=== PATIENT | male | born 1980 ===

== ENCOUNTER 2019-12-10 02:23 | Emergency (ER) | payer OTHER, SELFPAY ==
--- NOTE | 2019-12-10 | ECG_ITS ---
Test Reason : CHEST PAIN Blood Pressure : / mmHG Vent. Rate : 058 BPM Atrial Rate : 058 BPM P-R Int : 148 ms QRS Dur : 088 ms QT Int : 412 ms P-R-T Axes : 044 -20 013 degrees QTc Int : 404 ms Sinus bradycardia Left axis deviation Otherwise normal ECG No previous ECGs available Referred By: Gisselle Young Electronically Signed By:ROSA M DE LA FUENTE MD
--- NOTE | 2019-12-10 | XR_ITS ---
EXAMINATION: XR CHEST CLINICAL INFORMATION: Shortness of breath COMPARISON: None TECHNIQUE: Frontal view of the chest was obtained. FINDINGS: The lungs are well expanded. Patchy opacity at the left base. No pleural effusion or pneumothorax. The cardiomediastinal silhouette is within normal limits. No osseous abnormality. XR/XR chest 1V IMPRESSION: Patchy left basilar opacity which could represent atelectasis or pneumonia.
[2019-12-10 02:57] VITALS: BP 151/101; PULSE 67; RESP 18; TEMP 37.3; O2SAT 97; BMI 31.3
--- NOTE | 2019-12-10 04:24 | ED_ITS ---
HPI - URI/Sore Throat General Chief Complaint: Upper Respiratory Symptoms Stated Complaint: Sob Time Seen by Provider: 12/10/19 04:03 History of Present Illness HPI Narrative: Patient is a 31-year-old male presents today with having coughing, congestion, upper respiratory symptoms that ongoing for the last 4 days. Patient complains of subjective fever. Denies any recent travel. Denies any change in smell and taste. Denies any exposure to coronavirus. Patient from home. No history of similar symptoms. Decreased appetite. Decreased p.o. intake Related Data Previous Rx's Medication Instructions Recorded doxycycline hyclate 100 mg PO BID #14 cap 12/10/19 Allergies Allergy/AdvReac Type Severity Reaction Status Date / Time No Known Allergies Allergy Verified 12/10/19 02:57 Review of Systems Review of Systems: Constitutional: No Weight loss, No Fever, No Chills, No Night Sweats, No Fatigue, No Malaise ENT/Mouth: No Hearing loss, No Ear Pain, No Nasal Congestion, No Sinus Pain, No Hoarseness, No sore throat, No Rhinorrhea, No Swallowing Difficulty Eyes: No Eye Pain, No Swelling, No Redness, No Foreign Body, No Discharge, No Vision Changes Cardiovascular: No Chest Pain, No SOB, No Dyspnea on Exertion, No Orthopnea, No Edema, No Palpitations Respiratory: Positive Cough, positive Sputum, No Wheezing, No Smoke Exposure, No Dyspnea Gastrointestinal: No Nausea, No Vomiting, No Diarrhea, No Constipation, No abdominal Pain, No Hematochezia, No Melena Genitourinary: no irregular bleeding, No Dysuria, No Urinary Frequency, No Hematuria, No Urinary Incontinence, No Urgency, No Flank Pain, No Urinary Flow Changes, No Hesitancy Musculoskeletal: No joint pain, No Myalgias, No Joint Swelling Skin: No Skin Lesions, No rash Neuro: No Weakness, No Numbness, No Paresthesias, No Loss of Consciousness, No Dizziness, No Headache Psych: No Anxiety/Panic, No Depression, No SI/HI/AH/VH, No Social Issues, Heme/Lymph: No Bruising, No Bleeding,No Lymphadenopathy Endocrine: No Polyuria, No Polydipsia, No Temperature Intolerance PMFSH Past Medical History Attestation statement: The following information was validated with the patient. Social History Social History Advance Directives: No Advance Directives Information Provided: No Physical Exam Vital Signs: Vital Signs: Vital Signs Temp Pulse Resp BP Pulse Ox 12/10/19 02:57 99.2 F 67 18 151/101 H 97 Body Mass Index 31.3 Appearance: Alert. Oriented X3. No acute distress. Eyes: Pupils equal, round and reactive to light. ENT: Pharynx normal. Neck: Normal inspection. Neck supple. No lymph nodes noted. No crepitus CVS: Normal heart rate and rhythm. Pulses normal. Normal S1 and S2 Respiratory: No respiratory distress. Breath sounds normal. No Wheezing. No rales Abdomen: Soft and nontender. No rigidity. No distention. good BS x4 Skin: Skin warm and dry. Normal skin color. Normal skin turgor. Extremities: No lower extremity edema. Neurovascular intact to all extremities. No Lacerations. No Rash Neuro: Oriented X 3. No motor deficit. No sensory deficit. Moving all extermities. No slurred speech MDM - URI/Sore Throat MDM Narrative Medical decision making narrative: Patient had a low-grade fever. Chest x-ray showed a possible left lower lobe infiltrate. Will start patient on doxycycline an outpatient basis. Encouraged fluid. Close follow-up on outpatient basis. Home quarantine for possible coronavirus. In stable condition. Patient did have an EKG here in the emergency department it appears to be normal will discharge patient ECG Data Attestation: I personally reviewed and interpreted this ECG as follows: ECG interpretation date: 12/10/19 ECG interpretation time: 04:27 Interpretation: Sinus heart rate is 60 p.r. cares QT within normal limits is no ST segment elevation noted Discharge Plan Discharge Clinical Impression: Upper respiratory infection, Pneumonia, COVID-19 Patient Disposition: Home, Self-Care Instructions: Community Acquired Pneumonia (ED), COVID-19 (Coronavirus Disease 2019) (ED) Additional Instructions: Please follow strict home quarantine until all symptom has resolved for at least 2 days. Prescriptions: New doxycycline hyclate 100 mg capsule 100 mg PO BID Qty: 14 RF: 0 Referrals: Mckenna Mcconnell, [employer] [Primary Care Provider] - 2 days
== END 2019-12-10 04:41 | disposition home or self-care (01) ==
PROVIDERS: Emergency Provider Emergency Medicine Emergency Medical Services; PCP Nurse Practitioner Adult Health
DX: U07.1 COVID-19 (principal); J18.9 Pneumonia, unspecified organism; J06.9 Acute upper respiratory infection, unspecified
CPT/HCPCS: 71045; 87635; 93005; 99283

== ENCOUNTER 2020-03-26 10:23 | Outpatient (REF) | payer OTHER, SELFPAY ==
--- NOTE | ~2020-03-26 | XR_ITS ---
EXAMINATION: BILATERAL FEET CLINICAL INFORMATION: Bilateral foot pain. COMPARISON: None TECHNIQUE: 3 views of each foot FINDINGS: 3 views of the left foot do not demonstrate any evidence of acute fracture or dislocation. Joint spaces appear maintained without significant degenerative change. No periarticular or para-articular erosive changes are seen. There is a plantar calcaneal spur present. No significant soft tissue swelling. 3 views of the right foot do not demonstrate any evidence of acute fracture or dislocation. Joint spaces maintained. No significant soft tissue swelling. Prominent plantar calcaneal spur is seen. No erosive changes evident. XR/XR foot LT 2V IMPRESSION: Bilateral plantar calcaneal spurs.
--- NOTE | ~2020-03-26 | XR_ITS ---
EXAMINATION: BILATERAL FEET CLINICAL INFORMATION: Bilateral foot pain. COMPARISON: None TECHNIQUE: 3 views of each foot FINDINGS: 3 views of the left foot do not demonstrate any evidence of acute fracture or dislocation. Joint spaces appear maintained without significant degenerative change. No periarticular or para-articular erosive changes are seen. There is a plantar calcaneal spur present. No significant soft tissue swelling. 3 views of the right foot do not demonstrate any evidence of acute fracture or dislocation. Joint spaces maintained. No significant soft tissue swelling. Prominent plantar calcaneal spur is seen. No erosive changes evident. XR/XR foot RT 2V IMPRESSION: Bilateral plantar calcaneal spurs.
== END 2020-03-26 10:24 | disposition home or self-care (01) ==
LOC: HO.XRAY 10:23
PROVIDERS: PCP Nurse Practitioner Family; Visit Provider Nurse Practitioner Family
DX: M79.671 Pain in right foot (principal); M79.672 Pain in left foot
CPT/HCPCS: 73620

== ENCOUNTER 2020-03-28 09:20 | Outpatient (REF) | payer OTHER, SELFPAY ==
[2020-03-28 09:51] LABS: MANUAL DIFF FLAG NO
[2020-03-28 10:02] LABS: Basophils Absolute Auto 0.1 X10*3/uL (0.0-0.2); Basophils Percent Auto 0.8 % (0-2); Eosinophils Absolute Auto 0.2 X10*3/uL (0.0-0.4); Eosinophils Percent Auto 3.1 % (0-4); Hematocrit 44.5 % (42-52); Hemoglobin 15.6 g/dl (14.0-18.0); Imm Gran Abs Auto 0.02 X10*3/uL (0.00-0.03); Imm Gran Pct Auto 0.3 % (0.0-0.4); Lymphocytes Absolute Auto 2.6 X10*3/uL (1.2-4.9); Mean Corpuscular HGB Conc 35.1 g/dl (31.0-36.0); Mean Corpuscular Volume 91.4 fL (80-98); Mean Platelet Volume 9.8 fL (9.4-12.4); Monocytes Absolute Auto 0.7 X10*3/uL (0.1-1.2); Monocytes Percent Auto 10.9 % (2-11); Neutrophils Absolute Auto 2.9 X10*3/uL (2.0-8.3); Neutrophils Percent Auto 44.9 % (45-73); Platelet Count 238 X10*3/uL (160-400); Red Blood Count 4.87 X10*6/uL (4.60-5.80); Red Cell Distribution Width 11.8 % (11.0-16.0); White Blood Count 6.5 X10*3/uL (4.8-10.8)
[2020-03-28 10:23] LABS: Estimated Average Glucose 105 mg/dL; Hemoglobin A1c % 5.3 %
[2020-03-28 10:32] LABS: Anion Gap 14 (12-20); Blood Urea Nitrogen 13 mg/dL (9-16); Carbon Dioxide 25 mmol/L (22-29); Chloride 104 mmol/L (96-108); Cholesterol 256 mg/dL; Estimated Glomerular Filt Rate > 60; Glucose Fasting 97 mg/dL (60-99); HDL Cholesterol 65 mg/dL; LDL Cholesterol Calculated 163 mg/dl; Potassium 4.5 mmol/L (3.3-5.1); Sodium 138 mmol/L (135-145); Triglycerides 142 mg/dL
== END 2020-03-28 09:21 | disposition home or self-care (01) ==
LOC: HO.LAB 09:20
PROVIDERS: PCP Nurse Practitioner Family; Visit Provider Nurse Practitioner Family
DX: J18.9 Pneumonia, unspecified organism (principal); E78.00 Pure hypercholesterolemia, unspecified
CPT/HCPCS: 36415; 80048; 80061; 83036; 85025

== ENCOUNTER 2024-03-29 13:38 | Outpatient (AMB) | payer OTHER, SELFPAY ==
--- OUTSIDE RECORDS SUMMARY | 2024-03-29 13:44 | XMS_ITS | Data Portability ---
Author Organization [facility], [address] Address [address] [place] [address] Care Team Providers Care Urology Teacher Name Role Phone SKYLER KELLEY Primary Care Provider Assessment No assessment recorded. Plan of Treatment Reminders Order Date Submit Date Provider Last Modified By Organization Details Last Modified Time Details Appointments None recorded. Lab rapid strep group A, throat 2022 [address]23 [place] [id number], [address] [place] [address], [phone], 3 09:47:02 rapid flu (A+B) 2022 [address] [place] [address], [address] [place] [address], [phone], 3 09:47:02 streptococc us group A, culture, throat 2022 023 [place] [facility], [address] [place] [address], [place], [address], 3 08:07:41 Referral None recorded. Procedures None recorded. Surgeries None recorded. Imaging None recorded. Medication Orders amoxicillin 875 mg tablet 2022 [address] [place] [address] [id number], [address] [facility] [place], [address], 3 09:48:00 Patient TargetsNo targets recorded. Patient Instructions Encounter Date Encounter Id Patient Instructions Last Modified By Organization Details Last Modified Time 02/23/2022 [id number] sore throat: car e instructions Not available 02/23/2022 09:47:02 Use over the counter medications for your sore throat. Basic lozenges (cough drops) or lozenges with an anesthetic (numbing agent) can be used as needed for quick results; look for the active ingredient, benzocaine, for numbing lozenges (like Cepacol Extra or Chloraseptic Max). Gargling with warm salt water can also relieve pain. Dissolve 1/4 to 1/2 teaspoon in 8-ounces of warm water; gargle and spit salt solution every hour, as needed. Sore throat pain can also be reduced by taking regular doses of acetaminophen (tylenol) or ibuprofen (Advil); if you are given a prescription of PREDNISONE, you may continue to take acetaminophen, but do not take ibuprofen or naprosyn. While this isn't quick, it can significantly reduce pain within an hour after taking. Please consult our office promptly if you develop any of the following symptoms: 1. A fever of at least 101??F or 38.4??C 2. Throat pain that is severe or does not start to improve within 5 to 7 days Call for an ambulance or go to the emergency room if you: 1. Have trouble breathing 2. Cannot control your saliva (drooling) due to difficulty swallowing 3. Have swelling of the neck or tongue 4. Cannot move your neck or have trouble opening your mouth Not available 02/23/2022 09:47:12 Reason for Referral None Reported. Results Created Date Observation Date Name Description Value Unit Range Abnormal Flag Note LastModifiedBy Organization Detail LastModifiedTime 02/23/19 23 02/26/2022 BETA STREP GP A CULTU RE beta strep gp A culture NEGATI VE Refer ence Range : Negat kady Not Available [facility] ([facility]) [address] [facility], [place], [address], 02/26/2022 14:06:17 02/23/19 23 02/23/2022 rapid flu (A+B) Unknown Analyte Normal = Negati ve Not Available [address] [facility], [place], [address], 02/23/2022 09:08:33 02/23/19 23 02/23/2022 rapid flu (A+B) Unknown Analyte Normal = Negati ve Not Available [address] [place] [address], [place], [phone], 02/23/2022 09:08:33 02/23/19 23 02/23/2022 rapid flu (A+B) Unknown Analyte negati ve Not Available [address] [place] [address], [place], [phone], 02/23/2022 09:08:33 02/23/19 23 02/23/2022 rapid flu (A+B) Unknown Analyte negati ve Not Available [address] [place] [address], [place], [phone], 02/23/2022 09:08:33 02/23/19 23 02/23/2022 rapid strep group A, throa t Unknown Analyte Normal = Negati ve Not Available [address] [place] [address], [place], [phone], 02/23/2022 09:05:57 02/23/19 23 02/23/2022 rapid strep group A, throa t Unknown Analyte negati ve Not Available [address] [place] [address], [place], [phone], 02/23/2022 09:05:57 Result Notes None recorded. Problems Name Problem SNOMED Code Status Onset Date Resolution Date Notes Provider Name and Address Organization Details Recorded Time Hyperlipidemia 74692291 Active 2022 [facility] 09:12:37 Problem Notes None recorded. Procedures Surgical History Date Name Laterality Status Provider Name and Address Organization Details Recorded Time open reduction of fracture with internal fixation completed Charity VELAZQUEZ - [facility] 02/23/2022 09:08:39 Imaging Results None recorded. Procedure Notes None recorded. Medical Equipment None Reported. Allergies No known drug allergies Medications Name Sig Start Date Stop Date Status Note LastModified by Organization Details LastModified Time valsartan 80 mg tablet TAKE 1 TABLET BY MOUTH EVERY DAY active Not Available Not Available No t Available amoxicillin 875 mg tablet Take 1 tablet every 12 hours by oral route. 2022 active Not Available Not Available Not Avai lable amoxicillin 875 mg-potassiu m clavulanate 125 mg tablet TAKE 1 TABLET BY MOUTH 2 TIMES PER DAY FOR 10 DAYS WITH FOOD 02/23 completed Not Available Not Available Not Available atorvastati n active Not Available Not Available Not Available ID NOW COVID-19 Test Kit TEST DIRECTED TODAY 02/23 completed Not Available Not Available Not Available Vitals Date Recorded Body height Body mass index (BMI) Body weight Respiratory rate Body temperature Heart rate Oxygen saturation Oxygen saturation in Arterial blood by Pulse oximetry Systolic blood pressure Diastolic blood pressure Provider Name and Address Organization Details Last Updated DateTime 3 170.18 cm 34.5 kg/m2 27258.3 2 g 18 /min 98.1 [degF] 66 /min 100 % 100 % 156 mm[Hg] 102 mm[Hg] Charity VELAZQUEZ - [facility] 09:12:31 Social History Question Answer Notes LastModified by Organizat ion Details LastModified Time Tobacco Smoking Status Never Smoker Charity saldivar [place] - [facility] 02/23/2022 09:08:25 What Is Your Level Of Alcohol Consumption? Occasional Information not available 02/23/2022 Have You Had Direct Contact, Or Contact During Intimacy, With Monkeypox Rash, Scabs, Or Body Fluids From A Person With Monkeypox? No Information not available 02/23/2022 Do You Use Any Illicit Or Recreational Drugs? No Information not available 02/23/2022 Have You Recently Traveled Abroad? No Information not available 02/23/2022 Do You Or Have You Ever Used Any Other Forms Of Tobacco Or Nicotine? No Information not available 02/23/2022 Sex: Unknown Functional Status None recorded. Mental Status None recorded. Family History Relationship Description Onset Age of this Age Resolved Age Notes LastModified by Organization Details LastModified Time Father No current problems or disability Not available 02/23 09:08:18 Mother No current problems or disability Not available 02/23 09:08:18 Medical History No medical history recorded. Immunizations Vaccine Type Date Status Note Provider Nam e and Address Organization Details Recorded Time COVID-19, mRNA, LNP-S, PF, 30 mcg/0.3 mL dose 06/30/2020 completed Charitylowell Longoria null, PA - [facility] 02/23/2022 09:07:15 COVID-19, mRNA, LNP-S, PF, 30 mcg/0.3 mL dose 06/09/2020 completed Charity [place] null, PA - [facility] 02/23/2022 09:07:15 Past Encounters Encounter ID Performer Location Encounter Start Date Encounter Closed Date Diagnosis/Indication Diagnosis SNOMED-CT Code Diagnosis ICD10 Code Diagnosis Note [id number] [address] [place] [address] 04/22/2021 09:04:16 04/22/2021 10:16:48 [id number] [address] [place] [address] 04/18/2018 17:38:29 04/18/2018 18:05:20 [id number] [address] [place] [address] 05/16/2017 08:27:46 05/16/2017 08:48:36 [id number] Jacqueline Santamaria MD [address] [place] [address] 02/23/2022 08:24:30 02/23/2022 10:04:03 Upper respiratory infection 61922189 J06.9 Acute pharyngitis 914094 003 J02.9 Health Concerns Section Related Observation LastModified by Organization Detai ls LastModified Time None Recorded Concern Status LastModified by Organization Details LastModified Time None Recorded Advance Directives Directive None Recorded Payers Encounter Date Sequence Insurance Name Policy Number Policy Kwok Covered Member ID Kwok Member ID Guarantor Name 05/16/2017 1 [facility] [employer] (O) [id number] Krissy Shirley [id number] 1 Que Shirley 04/22/2021 1 [facility] [employer] (HMO) [id number] Krissy Shirley [id number] 1 Que Shirley 02/23/2022 1 [facility] [employer] (O) [id number] Krissy Shirley [id number] 1 Que hSirley Notes Date Note Type Note Provider Name and Address Organization Details Recorded Time 02/23/2022 text/html Sore throatRepor kelly [facility] Severity:moderate Quality:hurts to swallow Onset/Timin days Associated Symptoms:no shortness of breath; no wheezing; no vomiting; no nausea;yellow sputum;sinus pain/ congestion Context:no sick contacts Jacqueline Santamaria MD [address] [place], [place] [address], [address], [place] - [facility] 02/23/2022 09:48:50
--- NOTE | 2024-03-29 14:11 | A.OFFPC_ITS ---
Vital Signs 03/29/24 14:12 Height 5 ft 7 in Weight 241 lb BMI 37.7 BP 130/76 Blood Pressure Location Lt brachial Position Sitting Respiration 18 Pulse 76 Pulse Source Pulse Oximeter Temp 98.6 F Temp Source Oral Pulse Oximetry (%) 97 Oxygen Delivery Method Room Air Intake Visit Reasons: PE overdue/coughing/throat concerns when eating Intake Note: Pt is ere today for PE. Allergies No Known Allergies Allergy (Verified 03/29/24 14:12) Medication List - Last Reconciled 03/29/24 by Leigh Gomes MD No Known Home Meds Tobacco use date assessed: 03/29/24 Dental Screening Dental Screen Date: 03/29/24 Did you have a dental visit in the last 12 months?: Yes Did you have a dental problem in the last 6 months where you did not have access to dental care?: No Was dental information given to patient?: Patient has dentist HPI PE overdue/coughing/throat concerns when eating HPI Details Pt presents for PE. [facility] Medical History Plantar fasciitis Pain of both heels High cholesterol Surgical History History of hernia surgery No pertinent past surgical history Family History Family/Other Medical history unknown Father Hypertension Diabetes Mother No problems noted. Social History (Updated 03/29/24 @ 15:12 by Leigh Gomes MD) Household Members Other:: , 3 children, works at [employer] Housing: House Alcohol intake: current Patient Tobacco Use Status: Never used Tobacco e-Cigarette/Vaping Use: Never Used service: No Current occupational status: employed Cognitive needs: No Hearing needs: No Vision needs: Yes Questionnaire PHQ-9 Over the last 2 weeks, how often have you been bothered by any of the following problems? 1. Little interest or pleasure in doing things: several days 2. Feeling down, depressed, or hopeless: not at all 3. Trouble falling or staying asleep, or sleeping too much: several days 4. Feeling tired or having little energy: several days 5. Poor appetite or overeating: not at all 6. Feeling bad about yourself - or that you are a failure or have let yourself or your family down: not at all 7. Trouble concentrating on things, such as reading the newspaper or watching television: not at all 8. Moving or speaking so slowly that other people could have noticed. Or the opposite - being so fidgety or restless that you have been moving around a lot more than usual: not at all 9. Thoughts that you would be better off or of hurting yourself in some way: not at all Total score: 3 Depression Screening Interpretation: Negative Depression Screening Done: Yes 22935 - PHQ-9 Billing: Yes Source: Developed by Drs. Rosalino Gramajo, Kari Jones, Yung Paredes and colleagues, with an educational pham from [employer]. Thrive Questionnaire Date Thrive assessed: 03/29/24 I am a: Patient What is your living situation today?: I have a steady place to live Within the past 12 months, did the food you bought not last and you didn't have the money to get more?: Never true Within the past 12 months, did you worry whether your food would run out before you got money to buy more?: Never true Do you have trouble paying for medicines?: No Do you have trouble getting transportation to medical appointments?: Yes Do you have trouble paying your heating and electricity bill?: No Do you have trouble taking care of your child, family member or friend?: No Do you have trouble with day-to-day activities such as bathing, preparing meals, shopping, managing finances, etc.?: No Are you currently unemployed and looking for a job?: No Are you interested in more education?: No Please select the resources that you would like help with: None Currently or been in a relationship where the following occur: No concerns reported THRIVE Score: 1 AUDIT C Alcohol Use Questionnaire (AUDIT-C) 1. How often do you have a drink containing alcohol?: 2-3 times a week 2. How many drinks containing alcohol do you have on a typical day when you are drinking?: 3 or 4 3. How often do you have six or more drinks on one occasion?: Weekly Total Score: 7 JOMAR-7 AMB Questionnaire JOMAR-7 Date JOMAR - 7 assessed: 03/29/24 Feeling nervous, anxious, or on edge: 0 = Not at all Not being able to stop or control worryin = Not at all Worrying too much about different things: 0 = Not at all Trouble relaxin = Not at all Being so restless that it is hard to sit still: 0 = Not at all Becoming easily annoyed or irritable: 0 = Not at all Feeling afraid as if something awful might happen: 0 = Not at all Total JOMAR-7 score (0-4 normal; 5-9 mild; 10-14 moderate; 15-21 severe): 0 Source: Developed by Drs. Rosalino Gramajo, Kari Jones, Yung Paredes and colleagues, with an educational pham from [employer]. JOMAR-7 Assessment Billing JOMAR-7 Assessment Tool: JOMAR-7 Assessment 10661 Review of Systems Const All systems reviewed & are unremarkable except as noted in HPI and below Reports no additional complaints Eyes Reports no additional complaints ENT Reports no additional complaints Card Reports no additional complaints Resp Reports no additional complaints GI Reports no additional complaints Reports no additional complaints Physical exam (Primary Care) Vital Signs: Last Vital Signs Temp 98.6 F 03/29/24 14:12 Pulse 76 03/29/24 14:12 Resp 18 03/29/24 14:12 BP 130/76 03/29/24 14:12 Pulse Ox 97 03/29/24 14:12 Oxygen Delivery Method Room Air 03/29/24 14:12 BMI result Body Mass Index 37.7 Tobacco/Smoking Status: Tobacco use Status Tobacco use date assessed 03/29/24 03/29/24 14:18 Patient Tobacco Use Status Never used Tobacco 03/29/24 14:18 e-Cigarette/Vaping Use Never Used 03/29/24 14:18 PHQ-9: PHQ-9 Score PHQ-9: Total score 3 03/29/24 14:20 Depression Screening Interpretation: Negative Thrive Assessment: Date of Thrive Assessment Date Thrive assessed 03/29/24 03/29/24 14:20 Currently or been in a relationship where the following occur: No concerns reported Const General: no acute distress HENMT Head: Yes normal to inspection Face and sinus: Yes normal facial exam Mouth: Normal oral and palatal mucosa present Throat: Yes posterior oropharynx normal Eyes General: appearance normal, both eyes and all related structures Neck Neck: Yes no lymphadenopathy and Yes supple Resp Effort & Inspection: normal respiratory effort Auscultation: clear to auscultation bilaterally Cardio Rhythm: regular rhythm Heart sounds: S1 normal heart sound present and S2 normal heart sound present GI Inspection: Yes normal to inspection Palpation (GI): Soft to palpation Percussion: Yes normal to percussion Auscultation: normal bowel sounds Coding Level of Care Code Est Pt Prev Care 40-64y(98958) Diagnoses Sleep apnea G47.30 High cholesterol E78.00 Annual physical exam Z00.00 Additional Codes JOMAR-7 Assessment Billing - JOMAR-7 Assessment Tool: JOMAR-7 Assessment 33692 ([id number]) PHQ-9 - 42860 - PHQ-9 Billing: Yes ([id number]) Assessment & Plan Assessment & Plan (1) Sleep apnea: Comment: witnessed sleep apnea Code(s): G47.30 - Sleep apnea, unspecified Category: Medical Plan: schedule sleep study (2) High cholesterol: Code(s): E78.00 - Pure hypercholesterolemia, unspecified Category: Medical Plan: low cholesterol diet, regular exercise (3) Annual physical exam: Code(s): Z00.00 - Encounter for general adult medical examination without abnormal fin dings Category: Medical Plan: well balanced and low cholesterol diet, increase exercise, weight loss di scussed, return for fasting labs Orders: Orders RT home sleep study Today G47.30 - Sleep apnea, unspecified Lipid Panel Today E78.00 - Pure hypercholesterolemia, unspecified, Z00.00 - Encounter for general adult medical examination without abnormal findings Comprehensive Aubrey. Panel Fast Today E78.00 - Pure hypercholesterolemia, unspecified, Z00.00 - Encounter for general adult medical examination without abnormal findings Complete Blood Count Auto Diff Today E78.00 - Pure hypercholesterolemia, unspecified, Z00.00 - Encounter for general adult medical examination without abnormal findings UA w Microscopic Today E78.00 - Pure hypercholesterolemia, unspecified, Z00.00 - Encounter for general adult medical examination without abnormal findings
[2024-03-29 14:12] VITALS: BP 130/76; PULSE 76; RESP 18; TEMP 37; O2SAT 97; BMI 37.7
== END 2024-03-29 14:49 | disposition home or self-care (01) ==
PROVIDERS: PCP Internal Medicine; Visit Provider Internal Medicine
DX: G47.30 Sleep apnea, unspecified (principal); E78.00 Pure hypercholesterolemia, unspecified; Z00.00 Encounter for general adult medical examination without abnormal findings

== ENCOUNTER → 2024-03-29 13:38 | Outpatient (BNVA) | payer OTHER, SELFPAY | PROVIDERS: PCP Internal Medicine; Visit Provider Internal Medicine | DX: Z00.00 Encounter for general adult medical examination without abnormal findings (principal); G47.30 Sleep apnea, unspecified; E78.00 Pure hypercholesterolemia, unspecified | CPT/HCPCS: 96127; 99396 ==

== ENCOUNTER → 2024-05-29 13:22 | Outpatient (REF) | payer OTHER, SELFPAY ==
--- OUTSIDE RECORDS SUMMARY | 2024-05-29 15:54 | XMS_ITS | Data Portability ---
Author Organization [facility], [address] Address [address] [place] [address] Care Team Providers Care Lpn Cma Name Role Phone SKYLER KELLEY Primary Care Provider Assessment No assessment recorded. Plan of Treatment Reminders Order Date Submit Date Provider Last Modified By Organization Details Last Modified Time Details Appointments None recorded. Lab rapid strep group A, throat 2022 023 [place] [address], [address] [place] [address], [phone], 3 09:47:02 rapid flu (A+B) 2022 023 [place] [address], [address] [place] [address], [phone], 3 09:47:02 streptococc us group A, culture, throat 2022 023 [place] [facility], [address] [place] [address], [place], [address], 3 08:07:41 Referral None recorded. Procedures None recorded. Surgeries None recorded. Imaging None recorded. Medication Orders amoxicillin 875 mg tablet 2022 023 [place] [address] [id number], [address] [facility] [place], [address], 3 09:48:00 Patient TargetsNo targets recorded. Patient Instructions Encounter Date Encounter Id Patient Instructions Last Modified By Organization Details Last Modified Time 02/23/2022 [id number] sore throat: car e instructions Not available [...] symptoms: 1. A fever of at least 101? ? ?F or 38.4? ? ?C 2. Throat pain that is severe or [...] Range : Negat kady Not Available [facility] ([facility]) [address] [facility], [place], [address], 02/26/2022 14:06:17 02/23/19 23 02/23/2022 rapid flu (A+B) Unknown Analyte Normal = Negati ve Not Available [address] [facility], [place], [address], 02/23/2022 09:08:33 02/23/19 23 02/23/2022 rapid flu (A+B) Unknown Analyte Normal = Negati ve Not Available [address] [place], [place] [address], [address], 02/23/2022 09:08:33 02/23/19 23 02/23/2022 rapid flu (A+B) Unknown Analyte negati ve Not Available [address] [place], [place] [address], [address], 02/23/2022 09:08:33 02/23/19 23 02/23/2022 rapid flu (A+B) Unknown Analyte negati ve Not Available [address] [place] [address] [place], [address], 02/23/2022 09:08:33 02/23/19 23 02/23/2022 rapid strep group A, throa t Unknown Analyte Normal = Negati ve Not Available [address] [place] [address], [place], [phone], 02/23/2022 09:05:57 02/23/19 23 02/23/2022 rapid strep group A, throa t Unknown Analyte negati ve Not Available [address] [place] [address], [place], [phone], 02/23/2022 09:05:57 Result Notes None recorded. Problems Name Problem SNOMED Code Status Onset Date Resolution Date Notes Provider Name and Address Organization Details Recorded Time Hyperlipidemia [id number] Active 2022 [facility] 09:12:37 Problem Notes None recorded. Procedures Surgical History Date Name Laterality Status Provider Name and Address Organization Details Recorded Time open reduction of fracture with internal fixation completed Charity Rivera [facility] 02/23/2022 09:08:39 Imaging Results None [...] Updated DateTime 3 170.18 cm 34.5 kg/m2 73892.3 2 g 18 /min 98.1 [degF] 66 /min 100 % 100 % 156 mm[Hg] 102 mm[Hg] Charity VELAZQUEZ [facility] 09:12:31 Social History Question Answer Notes LastModified by Organizat ion Details LastModified Time Tobacco Smoking Status Never Smoker Charity saldivar PA - [facility] 02/23/2022 09:08:25 What Is Your Level Of [...] PF, 30 mcg/0.3 mL dose 06/30/2020 completed Charity Swati null, PA - [facility] 02/23/2022 09:07:15 COVID-19, mRNA, LNP-S, PF, 30 mcg/0.3 mL dose 06/09/2020 completed Charity Perley null, PA - [facility] 02/23/2022 09:07:15 Past Encounters Encounter ID Performer Location Encounter Start Date Encounter Closed Date Diagnosis/Indication Diagnosis SNOMED-CT Code Diagnosis ICD10 Code Diagnosis Note [id number] [address] [address] [place] [address] 04/22/2021 09:04:16 04/22/2021 10:16:48 [id number] [address] [facility] [place] [address] 04/18/2018 17:38:29 04/18/2018 18:05:20 [id number] [address] [facility] [place] [address] 05/16/2017 08:27:46 05/16/2017 08:48:36 [id number] Jacqueline Santamaria MD [address] [place] [address] 02/23/2022 08:24:30 02/23/2022 10:04:03 Upper respiratory infection 66105664 J06.9 Acute pharyngitis 297935 003 J02.9 Health Concerns Section Related Observation LastModified by Organization Detai ls LastModified Time None Recorded Concern Status LastModified by Organization Details LastModified Time None Recorded Advance Directives Directive None Recorded Payers Encounter Date Sequence Insurance Name Policy Number Policy Kwok Covered Member ID Kwok Member ID Guarantor Name 05/16/2017 1 [facility] (O) [id number] Krissy Shirley [id number] 1 Que Shirley 04/22/2021 1 [facility] (HMO) [id number] Krissy Shirley [id number] 1 Que Shirley 02/23/2022 1 [facility] (O) [id number] Krissy Shirley [id number] 1 Que Shirley Notes Date Note Type Note Provider Name and Address Organization Details Recorded Time 02/23/2022 text/html Sore throatRepor kelly bypatient.Location: hroat Severity:moderate Quality:hurts to swallow Onset/Timin days Associated Symptoms:no shortness of breath; no wheezing; no vomiting; no nausea;yellow sputum;sinus pain/ congestion Context:no sick contacts Jacqueline Santamaria MD [address] [place], [place] [address], [address], PA - [facility] 02/23/2022 09:48:50
== END ==
LOC: HO.SL 13:22
PROVIDERS: PCP Internal Medicine; Visit Provider Internal Medicine
DX: G47.30 Sleep apnea, unspecified (principal); R06.83 Snoring
CPT/HCPCS: 95806

== ENCOUNTER → 2024-05-29 13:41 | Outpatient (BNV) | payer OTHER, SELFPAY | PROVIDERS: PCP Internal Medicine; Visit Provider Internal Medicine | DX: R06.83 Snoring (principal); G47.10 Hypersomnia, unspecified | CPT/HCPCS: 95806 ==

== ENCOUNTER → 2024-09-22 15:56 | Outpatient (BNV) | payer OTHER, SELFPAY | PROVIDERS: PCP Internal Medicine; Visit Provider Radiology Diagnostic Radiology | DX: M25.562 Pain in left knee (principal) | CPT/HCPCS: 73564 ==

== ENCOUNTER 2024-09-22 16:12 | Emergency (ER) | payer OTHER, SELFPAY ==
--- NOTE | ~2024-09-22 | XR_ITS ---
CLINICAL HISTORY: injury pain Exam: AP, lateral, and oblique views of the left knee. Comparison: None provided. Findings: Bony alignment is anatomic. No fracture or joint effusion. Joint spaces are well preserved. No erosions. Impression: No acute findings. This document has been electronically signed by: Uche Unger MD on 09/22/2024 17:43:05
[2024-09-22 16:38] VITALS: BP 147/70; PULSE 96; RESP 16; TEMP 36.4; O2SAT 95; BMI 36.8
--- NOTE | 2024-09-22 16:54 | ED_ITS ---
HPI - General Adult General Chief complaint: Extremity Injury, Lower Stated complaint: Left knee inju Time Seen by Provider: 09/22/24 18:44 Source: patient Mode of arrival: ambulatory Limitations: no limitations History of Present Illness ED Provider: Juliana Streeter PA-C HPI narrative: Patient is a 44 year old assigned male at with a history of HTN presenting to the emergency department today with left knee pain. Patient states that 1 week ago he was mowing his lawn and felt / heard his left knee pop and has had pain ever since. Patient denies any other complaints at this time. Onset (ago): week(s) (1) Relieving factors: none Exacerbating factors: none Associated symptoms: denies other symptoms Treatments prior to arrival: none Related Data Previous Rx's ?Medication ?Instructions ?Recorded azithromycin 250 mg tablet See Rx Instructions PO .COM PLEX #6 04/04/24 tabs prednisone 20 mg tablet 20 mg PO DAILY 7 days #7 tab s 09/22/24 Allergies Allergy/AdvReac Type Severity Reaction Status Date / Time No Known Allergies Allergy Verified 09/22/24 16:41 Review of Systems Constitutional: Constitutional: Reports as per HPI Eyes: Eyes: Reports as per HPI ENT: Reports as per HPI Cardiovascular: Cardiovascular: Reports as per HPI Respiratory: Respiratory: Reports as per HPI Gastrointestinal: Gastrointestinal: Reports as per HPI Genitourinary: Genitourinary: Reports as per HPI Musculoskeletal: Comments: left knee pain Integumentary/Breasts: Skin/Breast: Reports as per HPI Neurologic: Reports as per HPI Psychiatric: Psychiatric: Reports as per HPI Endocrine: Endocrine: Reports as per HPI Hematologic/Lymphatic: Hematologic/Lymphatic: Reports as per HPI Allergic/Immunologic: Allergic/Immunologic: Reports as per HPI PMF Past Medical History Attestation statement: The following information was validated with the patient. Source: old records reviewed and nursing notes reviewed Medical History Plantar fasciitis Pain of both heels High cholesterol Surgical History History of hernia surgery No pertinent past surgical history Family History Family History Family/Other Medical history unknown Father Hypertension Diabetes Mother No problems noted. Social History Social History Household Members Other:: , 3 children, works at [employer] Housing: House Alcohol intake: current Patient Tobacco Use Status: Never used Tobacco e-Cigarette/Vaping Use: Never Used Advance Directives: No Advance Directives Information Provided: No Do you have a plan to hurt others: No Plan service: No Current occupational status: employed Cognitive needs: No Hearing needs: No Vision needs: Yes Physical Exam ED Vital Signs: Vital Signs - 24 hr 09/22/24 16:38 09/22/24 19:02 Temperature 97.6 F 97.6 F Pulse Rate 96 96 Respiratory Rate 16 16 Blood Pressure 147/70 H 147/70 H Pulse Oximetry 95 95 Oxygen Delivery Method Room Air Room Air BMI result Body Mass Index 36.8 Const General: cooperative, no acute distress, alert and awake Nutritional Appearance: well nourished Orientation/consciousness: patient oriented x3 HENMT Head: Yes normal to inspection and Yes atraumatic Ears: hearing grossly normal bilaterally and external ears normal General nose exam: Normal external nose present, no nasal discharge noted and no epistaxis Face and sinus: Yes normal facial exam, No abrasion and No laceration Mouth: Normal oral and palatal mucosa present, no drooling and no muffled voice Eyes General: appearance normal, both eyes and all related structures Periorbital: periorbital findings normal Eyelids: Yes eyelids normal Conjunctivae: conjunctivae normal Pupils: Equal, round and reactive pupils present EOM: EOMs intact bilaterally Neck Neck: Yes normal visual inspection and Yes full ROM Resp Effort & Inspection: normal respiratory effort and able to speak in complete sentences Neuro General: patient oriented x3, moves all extremities and CN's II-XI intact bilaterally Cranial nerves: Yes Equal, round and reactive pupils present Cognition (Neuro): normal cognition Extrem General: Yes normal to inspection, Yes full ROM and Yes capillary refill normal Psych Appearance: grossly normal Mental Status: mental status grossly normal Affect: normal affect Attitude: cooperative Thought process: Normal thought process present Thought content: Normal thought content present Insight: Good insight present (Psych) Course Course Course Narrative: Rapid medical examination performed in triage by Juliana Streeter PA-C. Patient is a 44 year old assigned male at presenting to the emergency department with left knee pain. Detailed physical exam and review of systems are deferred to the karate teacher. Imaging ordered. Patient placed back in the waiting room pending room availability and results. Medical Decision Making Medical Decision Making MDM Narrative: Patient is a 44 year old assigned male at with a history of HTN presenting to the emergency department today with left knee pain. Patient's physical exam showed full ROM of the left knee - although painful. Patient's left knee x-ray showed no acute process. I explained my physical exam findings as well as all test results to the patient. I answered all questions asked by the patient. I stressed the importance of the patient taking his medication as directed (either prescribed or as the over the counter packaging recommends). I stressed the importance of the patient following up with his primary care provider and the or thopedic team. I stressed the importance of the patient returning to the emergency department immediately if his symptoms were to worsen or if he were to develop any dizziness, shortness of breath, difficulty breathing, chest pain, blurry vision, loss of vision, nausea, vomiting, abdominal pain, fever, chills, back pain, or any other complaints. Patient verbalized agreement and understanding with this treatment plan and discharge. Differential Diagnosis Differential Diagnoses: The differential diagnosis associated with the presentation includes Left knee sprain Left knee strain Left meniscus injury Left ACL injury Admission/Observation Consideration of admission/observation: Escalation of care including admission/observation considered Patient would have been admitted to the hospital had his work up had any findings where hospital admission was appropriate and his clinical presentation warranted hospital admission. Independent Interpretation I performed an independent interpretation of an: Plain X-Ray Interpretation: My interpretation is in agreement with the radiologist's impression of this imaging study. CLINICAL HISTORY: injury pain Exam: AP, lateral, and oblique views of the left knee. Comparison: None provided. Findings: Bony alignment is anatomic. No fracture or joint effusion. Joint spaces are well preserved. No erosions. Impression: No acute findings. This document has been electronically signed by: Uche Unger MD on 09/22/2024 17:43:05 Dictated By: Uche Unger MD Signed By: Electronically signed by Uche Unger MD 09/22/24 8220 Radiology Impression Discussion of test interpretation with radiology: I have reviewed the radiologist's reading. Discharge Plan Discharge Clinical Impression: Knee sprain Patient Disposition: Home, Self-Care Instructions: Knee Sprain (DC) Additional Instructions: Your left knee x-ray was negative for any fracture/break however, I am concerned you sprained a ligament/tendon or injured your meniscus. I recommend you wear an over the counter knee brace with all physical activity and follow up with the orthopedic team on an outpatient basis. IF you are prescribed medications and/or you are taking over the counter med ications - it is very important you continue to do so as prescribed / directed unless told otherwise. Follow up with your primary care provider. Return to the emergency department immediately if your symptoms worsen or if you develop any numbness, tingling, dizziness, shortness of breath, difficulty breathing, chest pain, blurry vision, loss of vision, nausea, vomiting, abdominal pain, fever, chills, back pain, or any other complaints. Please see the information below about our Patient Portal. If you are not yet enrolled in the [facility] Patient Portal, you will receive an enrollment email invitation following your visit to any [facility] care setting. You may also self-enroll in the Patient Portal by visiting our website: [email or web address] The following information is required to access the Patient Portal: - Your [facility] Medical Record Number - Your personal home email address (must match what is in your electronic medical record, Registration staff can assist with this) - Name - Date of Capabilities of the Patient Portal: - Message some providers - View upcoming appointments - Access your health summary, medical history, and visit history - View current conditions and allergies - View procedure and lab results - View your medications, including guidelines, side effects, and precautions - Complete pre-appointment questionnaires requested by your provider - Ready summary reports of your office visits and procedures To access the Patient Portal Mobile Reena, follow these directions: - Search [employer] in the Reena Store or Google Play Store - Download the Reena - Search for [facility] - Enter your login/password Prescriptions: New prednisone 20 mg tablet 20 mg PO DAILY 7 Days Qty: 7 0RF No Action azithromycin 250 mg tablet See Rx Instructions PO .COMPLEX Qty: 6 0RF Rx Instructions: For 250 mg dose pack: take 500 mg today (day 1), then 250 mg for 4 days (days 2-5) PO Referrals: [facility] [Provider Group] Referral Note: Call to establish and follow up with the orthopedic team. Leigh Gomes MD [Primary Care Provider, Internal Medicine] Stand Alone Forms: Work/School Release Interventions: ED Discharge Assessment Last Done: 09/22/24 19:02 Discharge Date/Time: 09/22/24 19:03 Print Language: Tajik
[2024-09-22 19:02] VITALS: BP 147/70; PULSE 96; RESP 16; TEMP 36.4; O2SAT 95
== END 2024-09-22 19:03 | disposition home or self-care (01) ==
PROVIDERS: Emergency Provider Emergency Medicine Emergency Medical Services; PCP Internal Medicine
DX: S83.92XA Sprain of unspecified site of left knee, initial encounter (principal); M79.605 Pain in left leg; X58.XXXA Exposure to other specified factors, initial encounter; Y93.9 Activity, unspecified; Y92.9 Unspecified place or not applicable; Y99.8 Other external cause status
CPT/HCPCS: 73564; 99282; 99283

== ENCOUNTER 2024-10-20 15:28 | Emergency (ER) | payer OTHER, SELFPAY ==
--- NOTE | ~2024-10-20 | XR_ITS ---
CLINICAL HISTORY: swelling osteo? 3 view right foot Comparison: None provided Findings: Bones intact. No dislocations. No bony destruction or periostitis. Medial soft tissue edema is noted. No significant arthritic change or erosions. There is a calcaneal spur at the plantar fascia origin. No ankle effusion. No radiopaque foreign body. IMPRESSION: No evidence of osteomyelitis. This document has been electronically signed by: Roxanna Dodd MD on 10/20/2024 17:08:48
--- NOTE | ~2024-10-20 | US_ITS ---
CLINICAL HISTORY: right ankle swelling Venous duplex ultrasound right lower extremity Comparison: None provided Findings: The visualized deep veins are fully compressible with normal Doppler color flow and spectral tracings. No popliteal cyst. Mildly enlarged normal morphology lymph node containing a large fatty hilum within the right groin, most likely inflammatory. IMPRESSION: 1. Negative for right lower extremity deep vein thrombosis. This document has been electronically signed by: Roxanna Dodd MD on 10/20/2024 18:02:14
--- NOTE | ~2024-10-20 | XR_ITS ---
CLINICAL HISTORY: swelling. osteo 3 view right ankle Comparison: None provided Findings: No acute fractures or dislocations. No bony destruction or periostitis. Medial soft tissue edema. No significant loss of joint space, osteophytes, or erosions. Calcaneal spur at the plantar fascia origin. No ankle effusion. No radiopaque foreign body. IMPRESSION: 1. No acute bony abnormality. This document has been electronically signed by: Roxanna Dodd MD on 10/20/2024 17:29:30
[2024-10-20 15:45] VITALS: BP 168/101; PULSE 64; RESP 20; TEMP 36.4; O2SAT 98; BMI 36.5
--- NOTE | 2024-10-20 15:58 | ED.GENADULT ---
HPI - General Adult General Chief complaint: Extremity Injury, Lower Stated complaint: R ankle pain and swelling Time Seen by Provider: 10/20/24 16:07 Related Data Previous Rx's ?Medication ?Instructions ?Recorded azithromycin 250 mg tablet See Rx Instructions PO .COMPLEX #6 04/04/24 tabs prednisone 20 mg tablet 20 mg PO DAILY 7 days #7 tabs 09/22/24 Allergies Allergy/AdvReac Type Severity Reaction Status Date / Time No Known Allergies Allergy Verified 10/20/24 15:46 PMFSH Past Medical History Medical History Plantar fasciitis Pain of both heels High cholesterol Surgical History History of hernia surgery No pertinent past surgical history Family History Family History Family/Other Medical history unknown Father Hypertension Diabetes Mother No problems noted. Social History Social History Household Members Other:: , 3 children, works at [employer] [place] Housing: House Alcohol intake: current Patient Tobacco Use Status: Never used Tobacco Smoked in Last 30 Days: No e-Cigarette/Vaping Use: Never Used Use of substances other than those prescribed or required for medical reasons: No Advance Directives: No Advance Directives Information Provided: No service: No Current occupational status: employed Cognitive needs: No Hearing needs: No Vision needs: Yes Physical Exam ED Vital Signs: Vital Signs - 24 hr 10/20/24 15:45 10/20/24 17:57 Temperature 97.5 F 97.4 F Pulse Rate 64 61 Respiratory Rate 20 18 Blood Pressure 168/101 H 139/86 Pulse Oximetry 98 97 Oxygen Delivery Method Room Air Room Air BMI result Body Mass Index 36.5 Course Course Course Narrative: RME; 44 yold male presents to ED for right ankle pain and swelling for the past 3 weeks. Patient denies any recent trauma. Ultrasound labs x-ray ordered Medical Decision Making Lab Data 10/20/24 16:09 10/20/24 16:09 Labs: Lab Results 10/20/24 Range/Units 16:09 WBC 7.1 (4.8-10.8) X10*3/uL RBC 4.67 (4.60-5.80) X10*6/uL Hgb 15.1 (14.0-18.0) g/dl Hct 41.7 L (42.0-52.0) % MCV 89.3 (80.0-98.0) fL MCH 32.3 (27.0-33.0) pg MCHC 36.2 H (31.0-36.0) g/dl RDW 12.0 (11.0-16.0) % Plt Count 238 (160-400) X10*3/uL MPV 9.5 (9.4-12.4) fL Immature Gran % (Auto) 0.3 (0.0-0.4) % Neut % (Auto) 40.4 L (45-73) % Lymph % (Auto) 41.7 H (20-40) % [place] % (Auto) 10.6 (2-11) % Eos % (Auto) 6.3 H (0-4) % Baso % (Auto) 0.7 (0-2) % Lymph # (Auto) 3.0 (1.2-4.9) X10*3/uL [place] # (Auto) 0.8 (0.1-1.2) X10*3/uL Eos # (Auto) 0.5 H (0.0-0.4) X10*3/uL Baso # (Auto) 0.1 (0.0-0.2) X10*3/uL Abs Immat Gran (auto) 0.02 (0.00-0.03) X10*3/uL Absolute Neuts (auto) 2.9 (2.0-8.3) x10*3/uL Absolute Nucleated RBC 0.000 (0.0-0.012) X10*3/uL Nucleated RBC % (auto) 0.0 (0.0-0.2) /100WBC ESR 13 (0-15) MM/HR PT 10.8 L (10.9-12.4) SEC INR 0.9 (0.9-1.1) APTT 29.3 (26.7-34.1) SEC Sodium 140 (135-145) mmol/L Potassium 3.8 (3.3-5.1) mmol/L Chloride 107 (96-108) mmol/L Carbon Dioxide 22 (22-29) mmol/L Anion Gap 15 (12-20) BUN 14 (9-16) mg/dL Creatinine 0.90 (0.5-1.4) mg/dL Estim Creat Clear Calc 122.7 Estimated GFR > 60 Random Glucose 126 H (60-115) mg/dL Uric Acid 6.4 (3.4-7.0) mg/dL Calcium 9.3 D (8.4-10.2) mg/dL Total Bilirubin 0.6 (0.0-1.0) mg/dL AST 121 H (5-37) U/L ALT 179 H (0-40) U/L Alkaline Phosphatase 112 (39-117) U/L C-Reactive Protein 0.46 (< or = 0.50) mg/dL Total Protein 8.1 H (6.5-8.0) g/dL Albumin 4.4 (3.5-5.0) g/dL Discharge Plan Discharge Clinical Impression: Arthritis Patient Disposition: Home, Self-Care Instructions: Swollen Ankle Joint (ED) Prescriptions: No Action azithromycin 250 mg tablet See Rx Instructions PO .COMPLEX Qty: 6 0RF Rx Instructions: For 250 mg dose pack: take 500 mg today (day 1), then 250 mg for 4 days (days 2-5) PO prednisone 20 mg tablet 20 mg PO DAILY 7 Days Qty: 7 0RF Referrals: Leigh Gomes MD [Primary Care Provider, Internal Medicine] - 10/22/24 Stand Alone Forms: Work/School Release Print Language: Lao
[2024-10-20 16:16] LABS: MANUAL DIFF FLAG NO
[2024-10-20 16:22] LABS: Hematocrit 41.7 % (42.0-52.0); Hemoglobin 15.1 g/dl (14.0-18.0); Imm Gran Abs Auto 0.02 X10*3/uL (0.00-0.03); Imm Gran Pct Auto 0.3 % (0.0-0.4); Lymphocytes Absolute Auto 3.0 X10*3/uL (1.2-4.9); Mean Corpuscular HGB Conc 36.2 g/dl (31.0-36.0); Mean Corpuscular Hemoglobin 32.3 pg (27.0-33.0); Mean Corpuscular Volume 89.3 fL (80.0-98.0); NRBC Abs Auto 0.000 X10*3/uL (0.0-0.012); NRBC Pct Auto 0.0 /100WBC (0.0-0.2); Platelet Count 238 X10*3/uL (160-400); Red Blood Count 4.67 X10*6/uL (4.60-5.80); White Blood Count 7.1 X10*3/uL (4.8-10.8)
[2024-10-20 16:28] LABS: INTERNATIONAL NORM RATIO 0.9 (0.9-1.1); Prothrombin Time 10.8 SEC (10.9-12.4)
[2024-10-20 16:31] LABS: Partial Thromboplastin Time 29.3 SEC (26.7-34.1)
[2024-10-20 16:36] LABS: Alanine Aminotransferase 179 U/L (0-40); Albumin Level 4.4 g/dL (3.5-5.0); Alkaline Phosphatase 112 U/L (39-117); Anion Gap 15 (12-20); Aspartate Amino Transferase 121 U/L (5-37); Blood Urea Nitrogen 14 mg/dL (9-16); Calcium 9.3 mg/dL (8.4-10.2); Carbon Dioxide 22 mmol/L (22-29); Chloride 107 mmol/L (96-108); Creatinine Clr Calc Pharmacy 122.7; Estimated Glomerular Filt Rate > 60; Potassium 3.8 mmol/L (3.3-5.1); Sodium 140 mmol/L (135-145); Total Protein 8.1 g/dL (6.5-8.0); Uric Acid 6.4 mg/dL (3.4-7.0)
--- NOTE | 2024-10-20 17:27 | ED_ITS ---
HPI - General Adult General Chief complaint: Extremity Injury, Lower Stated complaint: R ankle pain and swelling Time Seen by Provider: 10/20/24 16:07 History of Present Illness HPI narrative: Patient is a 44-year-old male presents today with having right ankle pain that is been ongoing for about a month. The pain is not associated with any fever chills. . No nausea no vomiting no systemic complaints. No trauma to the ankle or to the knees to the foot. No history of similar pain in the past. No history of gout in the past. No previous history of IV drug use at any time. Patient is from home. 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 He claims is no change in his diet. It is not affected by any specific diet changes. Related Data Previous Rx's ?Medication ?Instructions ?Recorded azithromycin 250 mg tablet See Rx Instructions PO .COM PLEX #6 04/04/24 tabs prednisone 20 mg tablet 20 mg PO DAILY 7 days #7 tab s 09/22/24 Allergies Allergy/AdvReac Type Severity Reaction Status Date / Time No Known Allergies Allergy Verified 10/20/24 15:46 Review of Systems 2 Review of Systems: Positive right ankle pain Yes all other systems are reviewed and are negative PMFSH Past Medical History Attestation statement: The following information was validated with the patient. Medical History Plantar fasciitis Pain of both heels High cholesterol Surgical History History of hernia surgery No pertinent past surgical history Family History Family History Family/Other Medical history unknown Father Hypertension Diabetes Mother No problems noted. Social History Social History Household Members Other:: , 3 children, works at [employer] Housing: House Alcohol intake: current Patient Tobacco Use Status: Never used Tobacco Smoked in Last 30 Days: No e-Cigarette/Vaping Use: Never Used Use of substances other than those prescribed or required for medical reasons: No Advance Directives: No Advance Directives Information Provided: No service: No Current occupational status: employed Cognitive needs: No Hearing needs: No Vision needs: Yes Physical Exam ED Exam Exam: Appearance: Alert. Oriented X3. No acute distress. Eyes: Pupils equal, round and reactive to light. ENT: Pharynx normal. Neck: Normal inspection. Neck supple. No lymph nodes noted. No crepitus CVS: Normal heart rate and rhythm. Pulses normal. Normal S1 and S2 Respiratory: No respiratory distress. Breath sounds normal. No Wheezing. No rales Abdomen: Soft and nontender. No rigidity. No distention. good BS x4 Skin: Skin warm and dry. Normal skin color. Normal skin turgor. Extremities: Mild swelling noted over the right ankle. There is good distal pulses noted. There is no tenderness on palpation of the medial or lateral collateral ligament. There is no tenderness on palpation at the base of the 5th metatarsal there is good capillary refill that is good sensation over the foot. There is good movement of the toes. Skin is intact. Neuro: Oriented X 3. No motor deficit. No sensory deficit. Moving all extermities. No slurred speech Vital Signs: Vital Signs - 24 hr 10/20/24 15:45 10/20/24 17:57 Temperature 97.5 F 97.4 F Pulse Rate 64 61 Respiratory Rate 20 18 Blood Pressure 168/101 H 139/86 Pulse Oximetry 98 97 Oxygen Delivery Method Room Air Room Air BMI result Body Mass Index 36.5 Medical Decision Making Medical Decision Making [facility] Narrative: X-ray of the ankle x-ray of the foot showed no acute fracture by my interpretation. I reviewed radiology's reading. Patient white count is normal. Sed rate is normal. No history of IV drug use history not consistent with having septic arthritis white count is normal. Symptom seems to be fairly chronic. Ongoing for at least 3 weeks. Will have patient attempt additional NSAID time. Follow-up with primary physician on an outpatient basis. Doppler ultrasound of the right lower extremity was done. Radiology's interpretation was negative for DVT. Differential Diagnosis Differential Diagnoses: The differential diagnosis associated with the presentation includes DVT versus arthritis versus fracture versus arthritis Admission/Observation Consideration of admission/observation: Escalation of care including admission/observation considered Lab Data [facility] Lab Attestation statement: I reviewed the patient's lab results. 10/20/24 16:09 10/20/24 16:09 Labs: Lab Results 10/20/24 Range/Units 16:09 WBC 7.1 (4.8-10.8) X10*3/uL RBC 4.67 (4.60-5.80) X10*6/uL Hgb 15.1 (14.0-18.0) g/dl Hct 41.7 L (42.0-52.0) % MCV 89.3 (80.0-98.0) fL MCH 32.3 (27.0-33.0) pg MCHC 36.2 H (31.0-36.0) g/dl RDW 12.0 (11.0-16.0) % Plt Count 238 (160-400) X10*3/uL MPV 9.5 (9.4-12.4) fL Immature Gran % (Auto) 0.3 (0.0-0.4) % Neut % (Auto) 40.4 L (45-73) % Lymph % (Auto) 41.7 H (20-40) % [place] % (Auto) 10.6 (2-11) % Eos % (Auto) 6.3 H (0-4) % Baso % (Auto) 0.7 (0-2) % Lymph # (Auto) 3.0 (1.2-4.9) X10*3/uL [place] # (Auto) 0.8 (0.1-1.2) X10*3/uL Eos # (Auto) 0.5 H (0.0-0.4) X10*3/uL Baso # (Auto) 0.1 (0.0-0.2) X10*3/uL Abs Immat Gran (auto) 0.02 (0.00-0.03) X10*3/uL Absolute Neuts (auto) 2.9 (2.0-8.3) x10*3/uL Absolute Nucleated RBC 0.000 (0.0-0.012) X10*3/uL Nucleated RBC % (auto) 0.0 (0.0-0.2) /100WBC ESR 13 (0-15) MM/HR PT 10.8 L (10.9-12.4) SEC INR 0.9 (0.9-1.1) APTT 29.3 (26.7-34.1) SEC Sodium 140 (135-145) mmol/L Potassium 3.8 (3.3-5.1) mmol/L Chloride 107 (96-108) mmol/L Carbon Dioxide 22 (22-29) mmol/L Anion Gap 15 (12-20) BUN 14 (9-16) mg/dL Creatinine 0.90 (0.5-1.4) mg/dL Estim Creat Clear Calc 122.7 Estimated GFR > 60 Random Glucose 126 H (60-115) mg/dL Uric Acid 6.4 (3.4-7.0) mg/dL Calcium 9.3 D (8.4-10.2) mg/dL Total Bilirubin 0.6 (0.0-1.0) mg/dL AST 121 H (5-37) U/L ALT 179 H (0-40) U/L Alkaline Phosphatase 112 (39-117) U/L C-Reactive Protein 0.46 (< or = 0.50) mg/dL Total Protein 8.1 H (6.5-8.0) g/dL Albumin 4.4 (3.5-5.0) g/dL Independent Interpretation I performed an independent interpretation of an: Plain X-Ray (X-ray of the ankle was grossly negative) Radiology Impression Discussion of test interpretation with radiology: I have reviewed the radiologist's reading. External Record Review External record reviewed: Inpatient record Chronic Conditions Arthritis Social Determinants Patient?s care significantly limited by Social Determinants of Health including: Problems related to primary support group Discharge Plan Discharge Clinical Impression: Arthritis Patient Disposition: Home, Self-Care Instructions: Swollen Ankle Joint (ED) Prescriptions: No Action azithromycin 250 mg tablet See Rx Instructions PO .COMPLEX Qty: 6 0RF Rx Instructions: For 250 mg dose pack: take 500 mg today (day 1), then 250 mg for 4 days (days 2-5) PO prednisone 20 mg tablet 20 mg PO DAILY 7 Days Qty: 7 0RF Referrals: Leigh Gomes MD [Primary Care Provider, Internal Medicine] - 10/22/24 Stand Alone Forms: Work/School Release Print Language: Swedish
[2024-10-20 17:57] VITALS: BP 139/86; PULSE 61; RESP 18; TEMP 36.3; O2SAT 97
[2024-10-20 18:05] VITALS: BP 139/86; PULSE 61; RESP 18; TEMP 36.3; O2SAT 97
== END 2024-10-20 18:29 | disposition home or self-care (01) ==
PROVIDERS: Physician Assistant; Emergency Provider Emergency Medicine Emergency Medical Services; PCP Internal Medicine
DX: M19.071 Primary osteoarthritis, right ankle and foot (principal); M25.471 Effusion, right ankle; R60.0 Localized edema
CPT/HCPCS: 36415; 73600; 73620; 80053; 84550; 85025; 85610; 85652; 85730; 86140; 93971; 99284

== ENCOUNTER → 2024-10-20 15:51 | Outpatient (BNV) | payer OTHER, SELFPAY | PROVIDERS: Emergency Provider Emergency Medicine Emergency Medical Services; PCP Internal Medicine; Visit Provider Radiology Diagnostic Radiology | DX: R22.41 Localized swelling, mass and lump, right lower limb (principal); M25.571 Pain in right ankle and joints of right foot; M77.31 Calcaneal spur, right foot | CPT/HCPCS: 73600; 73620; 93971 ==

== ENCOUNTER 2024-10-22 11:52 | Outpatient (AMB) | payer OTHER, SELFPAY ==
[2024-10-22 12:23] VITALS: BP 138/90; PULSE 73; RESP 18; TEMP 36.8; O2SAT 96; BMI 37.0
--- NOTE | 2024-10-22 12:23 | MHC.PC.OV ---
Vital Signs 10/22/24 12:23 10/22/24 12:59 Height 5 ft 7 in Weight 236 lb BMI 37.0 BP 138/90 H 130/80 Blood Pressure Location Lt brachial Rt brachial Position Sitting Sitting Respiration 18 Pulse 73 Pulse Source Pulse Oximeter Temp 98.3 F Temp Source Oral Pulse Oximetry (%) 96 Oxygen Delivery Method Room Air Intake Visit Reasons: ER follow up Correctional Counselor/Case Manager Required: No Accompanied by: Self / Same As Patient Allergies No Known Allergies Allergy (Verified 10/22/24 12:23) Medication List - Last Reconciled 10/22/24 by Leigh Gomes MD meloxicam 15 mg PO DAILY Tobacco use date assessed: 10/22/24 Dental Screening Dental Screen Date: 10/22/24 Did you have a dental visit in the last 12 months?: Yes Did you have a dental problem in the last 6 months where you did not have access to dental care?: No Was dental information given to patient?: Patient has dentist HPI ER follow up HPI Details Pt presents for the follow-up of ER visit. Patient twisted and injured his left knee a month ago. He went to the ER had x-rays and was prescribed soft brace. Patient was seen by ortho (J[facility]) and was prescribed meloxicam last week. Patient developed progressing R ankle pain and swelling for 2 weeks. Patient went to the ER 3 days ago had negative x-ray of right ankle and ultrasound. Patient has been compensating for painful left knee using right leg more when walking. Patient works for [employer] and has been walking a lot at work. [facility] Medical History (Updated 10/22/24 @ 12:58 by Leigh Gomes MD) Left knee pain Right ankle pain Plantar fasciitis Pain of both heels High cholesterol Surgical History History of hernia surgery No pertinent past surgical history Family History Family/Other Medical history unknown Father Hypertension Diabetes Mother No problems noted. Social History Household Members Other:: , 3 children, works at [employer] Housing: House Alcohol intake: current Patient Tobacco Use Status: Never used Tobacco e-Cigarette/Vaping Use: Never Used service: No Current occupational status: employed Cognitive needs: No Hearing needs: No Vision needs: Yes Questionnaire PHQ-9 Over the last 2 weeks, how often have you been bothered by any of the following problems? 1. Little interest or pleasure in doing things: not at all 2. Feeling down, depressed, or hopeless: not at all 3. Trouble falling or staying asleep, or sleeping too much: not at all 4. Feeling tired or having little energy: not at all 5. Poor appetite or overeating: not at all 6. Feeling bad about yourself - or that you are a failure or have let yourself or your family down: not at all 7. Trouble concentrating on things, such as reading the newspaper or watching television: not at all 8. Moving or speaking so slowly that other people could have noticed. Or the opposite - being so fidgety or restless that you have been moving around a lot more than usual: not at all 9. Thoughts that you would be better off or of hurting yourself in some way: not at all Total score: 0 Depression Screening Interpretation: Negative Depression Screening Done: Yes 27542 - PHQ-9 Billing: Yes Source: Developed by Drs. Rosalino Gramajo, Kari Jones, Yung Paredes and colleagues, with an educational pham from [employer] ([employer] Thrive Questionnaire Date Thrive assessed: 03/29/24 I am a: Patient What is your living situation today?: I have a steady place to live Within the past 12 months, did the food you bought not last and you didn't have the money to get more?: Never true Within the past 12 months, did you worry whether your food would run out before you got money to buy more?: Never true Do you have trouble paying for medicines?: No Do you have trouble getting transportation to medical appointments?: Yes Do you have trouble paying your heating and electricity bill?: No Do you have trouble taking care of your child, family member or friend?: No Do you have trouble with day-to-day activities such as bathing, preparing meals, shopping, managing finances, etc.?: No Are you currently unemployed and looking for a job?: No Are you interested in more education?: No Please select the resources that you would like help with: None Currently or been in a relationship where the following occur: No concerns reported THRIVE Score: 1 JOMAR-7 AMB Questionnaire JOMAR-7 Date JOMAR - 7 assessed: 03/29/24 Feeling nervous, anxious, or on edge: 0 = Not at all Not being able to stop or control worryin = Not at all Worrying too much about different things: 0 = Not at all Trouble relaxin = Not at all Being so restless that it is hard to sit still: 0 = Not at all Becoming easily annoyed or irritable: 0 = Not at all Feeling afraid as if something awful might happen: 0 = Not at all Total JOMAR-7 score (0-4 normal; 5-9 mild; 10-14 moderate; 15-21 severe): 0 Source: Developed by Drs. Rosalino Gramajo, Kari Jones, Yung Paredes and colleagues, with an educational pham from [employer] ([employer] Review of Systems Const All systems reviewed & are unremarkable except as noted in HPI and below ENT Reports no additional complaints Card Reports no additional complaints Resp Reports no additional complaints GI Reports no additional complaints Physical exam (Primary Care) Vital Signs: Last Vital Signs Temp 98.3 F 10/22/24 12:23 Pulse 73 10/22/24 12:23 Resp 18 10/22/24 12:23 BP 138/90 H 10/22/24 12:23 Pulse Ox 96 10/22/24 12:23 Oxygen Delivery Method Room Air 10/22/24 12:23 BMI result Body Mass Index 37.0 Tobacco/Smoking Status: Tobacco use Status Tobacco use date assessed 10/22/24 10/22/24 12:29 Patient Tobacco Use Status Never used Tobacco 10/22/24 12:29 e-Cigarette/Vaping Use Never Used 10/22/24 12:29 PHQ-9: PHQ-9 Score PHQ-9: Total score 0 10/22/24 12:29 Depression Screening Interpretation: Negative Thrive Assessment: Date of Thrive Assessment Date Thrive assessed 03/29/24 10/22/24 12:29 Currently or been in a relationship where the following occur: No concerns reported Const General: no acute distress HENMT Head: Yes normal to inspection Eyes General: appearance normal, both eyes and all related structures Resp Effort & Inspection: normal respiratory effort Auscultation: clear to auscultation bilaterally Cardio Rhythm: regular rhythm Heart sounds: S1 normal heart sound present and S2 normal heart sound present Extrem Other: This is a slight soft tissue swelling decreased range of motion in the left knee. There is a tenderness in the medial aspect of right ankle slightly decreased range of motion and soft tissue swelling no erythema or warmth Coding Level of Care Code Est Pt Level 3 (36840) Diagnoses Left knee injury S89.92XA Right ankle pain M25.571 Additional Codes PHQ-9 - 51307 - PHQ-9 Billing: Yes ([id number]) Assessment & Plan Assessment & Plan (1) Left knee injury: Code(s): S89.92XA - Unspecified injury of left lower leg, initial encounter Category: Medical Plan: For persistent pain of the left knee after the injury patient will be referred to physical therapy. (2) Right ankle pain: Code(s): M25.571 - Pain in right ankle and joints of right foot Category: Medical Plan: Continue meloxicam and pt was advised to elevate right lower extremity. Patient will stay off work for this week the out of work note can be extended for another week if patient is not better Orders: Orders PT Evaluation and Treatment Today S89.92XA - Unspecified injury of left lower leg, initial encounter
[2024-10-22 12:59] VITALS: BP 130/80
== END 2024-10-22 13:05 | disposition home or self-care (01) ==
LOC: HO.HMCC 11:53
PROVIDERS: PCP Internal Medicine; Visit Provider Internal Medicine
DX: S89.92XA Unspecified injury of left lower leg, initial encounter (principal); M25.571 Pain in right ankle and joints of right foot

== ENCOUNTER → 2024-10-22 11:52 | Outpatient (BNVA) | payer OTHER, SELFPAY | PROVIDERS: PCP Internal Medicine; Visit Provider Internal Medicine | DX: M25.571 Pain in right ankle and joints of right foot (principal); S89.92XA Unspecified injury of left lower leg, initial encounter; X58.XXXA Exposure to other specified factors, initial encounter; Y93.9 Activity, unspecified; Y92.9 Unspecified place or not applicable; Y99.9 Unspecified external cause status | CPT/HCPCS: 96127; 99212 ==

== ENCOUNTER 2024-12-05 08:28 | Outpatient (AMB) | payer OTHER, SELFPAY ==
[2024-12-05 08:30] VITALS: BP 132/86; PULSE 72; TEMP 36.7; O2SAT 98; BMI 37.0
--- NOTE | 2024-12-05 08:30 | MHC.OFFWIV ---
Intake Vital Signs 12/05/24 08:30 Height 5 ft 7 in Weight 236 lb BMI 37.0 BP 132/86 Blood Pressure Location Rt brachial Position Sitting Pulse 72 Pulse Source Pulse Oximeter Temp 98.1 F Temp Source Oral Pulse Oximetry (%) 98 Oxygen Delivery Method Room Air Intake Visit Reasons: EP -Left Ear Discomfort x48 hours Intake Note: Patient presents left ear pain x1 week Patient Tobacco Use Status: Never used Tobacco Allergies No Known Allergies Allergy (Verified 12/05/24 08:32) Medication List - Last Reconciled 12/05/24 by Bryanna Rodriguez NP ciprofloxacin-dexamethasone 0.3-0.1 % 4 drps otic (ear) left BID 7 days meloxicam 15 mg PO DAILY Do you need a note to return to daycare/school/sports/work: Yes HPI HPI Comments History of Present Illness Details 44 y/o Male patient who presents to the walk in clinic with c/o Left Ear pain and discomfort for a week. Reports trouble hearing on left Ear. States feeling like Left Ear is blocked. He has been using Hydrogen Peroxide Drops with no relief. Denies URI symptoms. [facility] Medical History (Updated 12/05/24 @ 08:54 by Bryanna Rodriguez NP) Otitis externa Left knee pain Right ankle pain Plantar fasciitis Pain of both heels High cholesterol Surgical History History of hernia surgery No pertinent past surgical history Family History Family/Other Medical history unknown Father Hypertension Diabetes Mother No problems noted. Social History Household Members Other:: , 3 children, works at [employer] Housing: House Alcohol intake: current Patient Tobacco Use Status: Never used Tobacco e-Cigarette/Vaping Use: Never Used service: No Current occupational status: employed Cognitive needs: No Hearing needs: No Vision needs: Yes Review of Systems Const All systems reviewed & are unremarkable except as noted in HPI and below Physical Exam Vital Signs: Last Vital Signs Temp 98.1 F 12/05/24 08:30 Pulse 72 12/05/24 08:30 BP 132/86 12/05/24 08:30 Pulse Ox 98 12/05/24 08:30 Oxygen Delivery Method Room Air 12/05/24 08:30 BMI result Body Mass Index 37.0 Const General: no acute distress Nutritional Appearance: obese Orientation/consciousness: patient oriented x3 HEENT Head: Yes normocephalic Ears: external ears normal and TM abnormal wth effusion purulent on the left, erythematous on the left and retracted on the left; not perforated General nose exam: Normal external nose present Face and sinus: Yes sinuses nontender Mouth: moist mucous membranes Throat: Yes uvula midline Neuro General: patient oriented x3, gait normal and moves all extremities Psych Speech and movement: Normal speech and movement present Assessment & Plan Assessment & Plan (1) Otitis externa: Code(s): H60.90 - Unspecified otitis externa, unspecified ear Qualifiers: Otitis externa type: other infective Chronicity: acute Laterality: left Qualified Code(s): H60.392 - Other infective otitis externa, left ear Plan: Ordered Cipro Ear drops for 7 days. Advised to take NSAIDs for pain relief. RTC if symptoms worse. Medications: New ciprofloxacin-dexamethasone 0.3-0.1 % 4 drps otic (ear) left BID 7.5 mL 0RF 7 days H60.392 - Other infective otitis externa, left ear Coding Level of Care Code Est Pt Level 4 (22023) Diagnoses Other infective acute otitis externa of left ear H60.392 Otitis externa type: other infective Chronicity: acute Laterality: left Time Spent (min) 20
== END 2024-12-05 09:29 | disposition home or self-care (01) ==
PROVIDERS: PCP Internal Medicine; Visit Provider Nurse Practitioner Family
DX: H60.392 Other infective otitis externa, left ear (principal)

== ENCOUNTER → 2024-12-05 08:28 | Outpatient (BNVA) | payer OTHER, SELFPAY | PROVIDERS: PCP Internal Medicine; Visit Provider Nurse Practitioner Family | DX: H60.392 Other infective otitis externa, left ear (principal) | CPT/HCPCS: 99212 ==

== ENCOUNTER 2024-12-06 10:58 | Outpatient (AMB) | payer OTHER, SELFPAY ==
[2024-12-06 11:11] VITALS: BP 150/100; PULSE 70; TEMP 37.1; O2SAT 98; BMI 37.1
--- NOTE | 2024-12-06 11:11 | MHC.OFFWIV ---
Intake Vital Signs 12/06/24 11:11 Height 5 ft 7 in Weight 237 lb BMI 37.1 BP 150/100 H Blood Pressure Location Rt brachial Position Sitting Pulse 70 Pulse Source Pulse Oximeter Temp 98.7 F Temp Source Oral Pulse Oximetry (%) 98 Oxygen Delivery Method Room Air Intake Visit Reasons: EP Left side ear pain Intake Note: EP complains of pain and noise in his left ear started a week ago. The ear drop he got yesterday does not help him. No injury was reported. Patient Tobacco Use Status: Never used Tobacco Allergies No Known Allergies Allergy (Verified 12/06/24 11:19) Do you need a note to return to daycare/school/sports/work: Yes HPI HPI Comments History of Present Illness Details This is a 44 year old male with a past medical history of hypertension, not currently taking any anti-hypertensive medications, presenting for evaluation of left ear pain. Patient states he has had pain in his left ear for the past 1 week. Patient was seen in urgent care yesterday and prescribed Ciprodex for a left otitis externa for which he states he has had no improvement over the past 24 hours.. Patient states that the pain is increasing and he has decreased hearing in his left ear. He denies having any fevers, chills, sore throat or sinus pain. [facility] Medical History (Updated 12/06/24 @ 11:35 by Milady Chavez PA-C) Otitis externa Left knee pain Right ankle pain Plantar fasciitis Pain of both heels High cholesterol Surgical History History of hernia surgery No pertinent past surgical history Family History Family/Other Medical history unknown Father Hypertension Diabetes Mother No problems noted. Social History Household Members Other:: , 3 children, works at [employer] Housing: House Alcohol intake: current Patient Tobacco Use Status: Never used Tobacco e-Cigarette/Vaping Use: Never Used service: No Current occupational status: employed Cognitive needs: No Hearing needs: No Vision needs: Yes Review of Systems Const All systems reviewed & are unremarkable except as noted in HPI and below Reports as per HPI, Denies chills, Denies fever(s) and Denies headache(s) Eyes Reports no additional complaints ENT Reports otalgia (left ear), Denies facial pain, Denies headache(s) and Denies sore throat Card Reports no additional complaints Resp Reports no additional complaints GI Reports no additional complaints Reports no additional complaints Musc Reports no additional complaints Skin/Breast Reports system reviewed and no additional complaints, except as documented Neuro Reports no additional complaints and Denies headache(s) Psych Reports no additional complaints Endo Reports no additional complaints Aller/Immun Reports no additional complaints Physical Exam Vital Signs: Last Vital Signs Temp 98.7 F 12/06/24 11:11 Pulse 70 12/06/24 11:11 BP 150/100 H 12/06/24 11:11 Pulse Ox 98 12/06/24 11:11 Oxygen Delivery Method Room Air 12/06/24 11:11 BMI result Body Mass Index 37.1 Patient is hypertensive and afebrile. Const General: cooperative, healthy appearing, comfortable, no acute distress, well developed, alert, awake and Physically active; No ill appearing or lethargic Nutritional Appearance: overweight Orientation/consciousness: patient oriented x3 and No lethargic Limitations: no limitations HEENT Head: Yes normal to inspection and Yes normocephalic Ears: hearing grossly abnormal bilaterally (subjective decreased hearing left ear), external ears normal, TM normal on the right, left TM abnormal (TM bulging, mild erythema, purulence noted 3 o'clock - 5 o'clock position), EAC's normal and mastoids normal General nose exam: Normal external nose present Mouth: Normal oral and palatal mucosa present, oropharynx normal and moist mucous membranes Throat: Yes posterior oropharynx normal and No postnasal drainage Neck Lymphatic: no lymphadenopathy noted Neuro General: patient oriented x3 Psych Appearance: grossly normal Mental Status: mental status grossly normal Insight: Good insight present (Psych) Judgement: Good judgement present (Psych) Assessment & Plan Assessment & Plan (1) Otitis media of left ear: Comment: Patient is evaluated. His most recent medical record is reviewed. Otic drops will be discontinued and he will be discharged home with oral antibiotic therapy. Code(s): H66.92 - Otitis media, unspecified, left ear Qualifiers: Otitis media type: unspecified Qualified Code(s): H66.92 - Otitis media, unspecified, left ear Plan: Amoxicillin 500mg TID x 7 days; Tylenol or Ibuprofen as needed. Medications: New amoxicillin 500 mg PO TID 21 caps 0RF Coding Level of Care Code Est Pt Level 3 (55737) Diagnoses Left otitis media, unspecified otitis media type H66.92 Otitis media type: unspecified Time Spent (min) 20
== END 2024-12-06 11:29 | disposition home or self-care (01) ==
PROVIDERS: PCP Internal Medicine; Visit Provider Physician Assistant
DX: H66.92 Otitis media, unspecified, left ear (principal)

== ENCOUNTER → 2024-12-06 10:58 | Outpatient (BNVA) | payer OTHER, SELFPAY | PROVIDERS: PCP Internal Medicine; Visit Provider Physician Assistant | DX: H66.92 Otitis media, unspecified, left ear (principal); I10 Essential (primary) hypertension | CPT/HCPCS: 99212 ==

== ENCOUNTER 2024-12-23 08:14 | Outpatient (AMB) | payer OTHER, SELFPAY ==
--- NOTE | 2024-12-23 08:21 | MHC.OFFWIV ---
Intake Vital Signs 12/23/24 08:23 Height 5 ft 7 in Weight 235 lb BMI 36.8 BP 138/92 H Blood Pressure Location Rt brachial Position Sitting Respiration 16 Pulse 83 Pulse Source Pulse Oximeter Temp 98.1 F Temp Source Oral Pulse Oximetry (%) 96 Oxygen Delivery Method Room Air Intake Visit Reasons: EP-rt ankle & knee pain/swollen Intake Note: Pt is here today c/o Rt ankle pain and Lt knee swollen: due to a fall at home back in oct Patient Tobacco Use Status: Never used Tobacco Allergies No Known Allergies Allergy (Verified 12/23/24 08:21) Medication List - Last Reconciled 12/23/24 by Bryanna Rodriguez NP diclofenac potassium 50 mg PO BID 7 days HPI HPI Comments History of Present Illness Details 44 y/o Male presents to the walk-in clinic with complaints of right ankle swelling/pain and left knee pain. Reports injury in September 2024 while mowing the lawn. States he was evaluated multiple times in the ED during September and October; all imaging and testing were negative. He was evaluated by Orthopedics ([facility]) in October and prescribed Meloxicam, but reports no improvement. Orthopedics advised return if symptoms persisted, suspecting possible left meniscus tear and consideration for MRI. Patient was unaware he was to follow up with [facility]. PCP previously ordered physical therapy, but patient has not been contacted for an appointment. Denies recent trauma, redness, warmth, numbness, tingling, fever, or chills. [facility] Medical History (Updated 12/06/24 @ 11:35 by Milady Chavez PA-C) Otitis externa Left knee pain Right ankle pain Plantar fasciitis Pain of both heels High cholesterol Surgical History History of hernia surgery No pertinent past surgical history Family History Family/Other Medical history unknown Father Hypertension Diabetes Mother No problems noted. Social History Household Members Other:: , 3 children, works at [email or web address] Housing: House Alcohol intake: current Patient Tobacco Use Status: Never used Tobacco e-Cigarette/Vaping Use: Never Used service: No Current occupational status: employed Cognitive needs: No Hearing needs: No Vision needs: Yes Review of Systems Const All systems reviewed & are unremarkable except as noted in HPI and below Physical Exam Vital Signs: Last Vital Signs Temp 98.1 F 12/23/24 08:23 Pulse 83 12/23/24 08:23 Resp 16 12/23/24 08:23 BP 138/92 H 12/23/24 08:23 Pulse Ox 96 12/23/24 08:23 Oxygen Delivery Method Room Air 12/23/24 08:23 BMI result Body Mass Index 36.8 Const General: no acute distress; No comfortable Nutritional Appearance: obese Orientation/consciousness: patient oriented x3 Neuro General: patient oriented x3, gait normal and moves all extremities Extrem Right lower extremity: ankle Details: tenderness Location: of the lateral malleolus and of the medial malleolus, swelling and abnormal ROM Details: pain with active ROM and pain with passive ROM; no unusual warmth and no abrasions Left lower extremity: knee Details: normal to inspection, tenderness and abnormal ROM Details: pain with active ROM and pain with passive ROM Psych Speech and movement: Normal speech and movement present Assessment & Plan Assessment & Plan (1) Right ankle pain: Code(s): M25.571 - Pain in right ankle and joints of right foot Plan: Chronic right ankle pain and swelling ? likely soft tissue injury vs tendinopathy. Chronic left knee pain ? possible meniscal injury; no improvement on NSAIDs. Delay in PT initiation due to scheduling issue. Re-refer to Orthopedics ([facility]) for follow-up and MRI consideration. Discontinue Meloxicam if ineffective; Start Diclofenac. Recommend RICE measures (rest, ice, compression, elevation) and avoid aggravating activity. Gave patient a week off since his Job requires him to be on his feet and walking. (2) Left knee pain: Code(s): M25.562 - Pain in left knee Plan: Chronic right ankle pain and swelling ? likely soft tissue injury vs tendinopathy. Chronic left knee pain ? possible meniscal injury; no improvement on NSAIDs. Delay in PT initiation due to scheduling issue. Re-refer to Orthopedics ([facility]) for follow-up and MRI consideration. Discontinue Meloxicam if ineffective; Start Diclofenac. Recommend RICE measures (rest, ice, compression, elevation) and avoid aggravating activity. Gave patient a week off since his Job requires him to be on his feet and walking. Medications: New diclofenac potassium 50 mg PO BID 20 tabs 0RF 7 days M25.562 - Pain in left knee, M25.571 - Pain in right ankle and joints of right foot Coding Level of Care Code Est Pt Level 4 (53564) Diagnoses Right ankle pain M25.571 Left knee pain M25.562 Time Spent (min) 20
[2024-12-23 08:23] VITALS: BP 138/92; PULSE 83; RESP 16; TEMP 36.7; O2SAT 96; BMI 36.8
== END 2024-12-23 09:09 | disposition home or self-care (01) ==
PROVIDERS: PCP Internal Medicine; Visit Provider Nurse Practitioner Family
DX: M25.571 Pain in right ankle and joints of right foot (principal); M25.562 Pain in left knee

== ENCOUNTER → 2024-12-23 08:14 | Outpatient (BNVA) | payer OTHER, SELFPAY | PROVIDERS: PCP Internal Medicine; Visit Provider Nurse Practitioner Family | DX: M25.571 Pain in right ankle and joints of right foot (principal); M25.562 Pain in left knee | CPT/HCPCS: 99212 ==

== ENCOUNTER 2025-01-06 08:03 | Outpatient (AMB) | payer OTHER, SELFPAY ==
--- NOTE | 2025-01-06 08:06 | AM.OFFWIN_ITS ---
Intake Vital Signs 01/06/25 08:07 Height 5 ft 7 in Weight 235 lb BMI 36.8 BP 136/98 H Blood Pressure Location Rt brachial Position Sitting Pulse 73 Pulse Source Pulse Oximeter Temp 98.5 F Temp Source Oral Pulse Oximetry (%) 98 Oxygen Delivery Method Room Air Intake Visit Reasons: EP-lt ear pain Intake Note: Patient presents c/o left ear pain. Patient seen on 12/23 for same thing, completed abx & using ear drops but has not gotten better. Patient Tobacco Use Status: Never used Tobacco Allergies No Known Allergies Allergy (Verified 01/06/25 08:08) Medication List - Last Reconciled 01/06/25 by Bryanna Rodriguez NP cefuroxime axetil 500 mg PO BID 10 days naproxen 500 mg PO BID 7 days Do you need a note to return to daycare/school/sports/work: Yes HPI HPI Comments History of Present Illness Details 44-year-old male presents to the walk-in clinic with left ear pain associated with hearing loss since last night. Pain is described as sharp, severe, and significant enough to prevent sleep. Pain radiates to the left jaw. He denies fever, chills, malaise, dental pain, recent dental procedures, or jaw pain with chewing. He reports being seen on 12/05 and 12/06 for similar symptoms and was diagnosed with otitis media. He completed two treatment courses: Ciprodex otic drops x7 days and Augmentin x7 days. He reports no improvement after either regimen. He has a history of recurrent ear infections in childhood and underwent unknown ear surgery bilaterally. No hearing loss, tinnitus, vertigo, or otorrhea is reported today. [facility] Medical History (Updated 01/06/25 @ 08:37 by Bryanna Rodriguez NP) Ruptured tympanic membrane Otitis externa Left knee pain Right ankle pain Plantar fasciitis Pain of both heels High cholesterol Surgical History History of hernia surgery No pertinent past surgical history Family History Family/Other Medical history unknown Father Hypertension Diabetes Mother No problems noted. Social History Household Members Other:: , 3 children, works at [employer] Housing: House Alcohol intake: current Patient Tobacco Use Status: Never used Tobacco e-Cigarette/Vaping Use: Never Used service: No Current occupational status: employed Cognitive needs: No Hearing needs: No Vision needs: Yes Review of Systems Const All systems reviewed & are unremarkable except as noted in HPI and below Physical Exam Vital Signs: Last Vital Signs Temp 98.5 F 01/06/25 08:07 Pulse 73 01/06/25 08:07 BP 136/98 H 01/06/25 08:07 Pulse Ox 98 01/06/25 08:07 Oxygen Delivery Method Room Air 01/06/25 08:07 BMI result Body Mass Index 36.8 Const General: no acute distress; No comfortable Nutritional Appearance: obese Orientation/consciousness: patient oriented x3 HEENT Other: Surgical Scars Behind Both Ears. Mastoid: Negative for tenderness, swelling, or erythema. Jaw: No TTP at TMJ, no pain with opening/closing. Head: Yes normocephalic Ears: external ears normal and TM abnormal bulging on the left, erythematous on the left, perforated without discharge and retracted on the left General nose exam: Normal external nose present Face and sinus: Yes sinuses nontender Mouth: moist mucous membranes Teeth and gingiva: fair dentition Throat: Yes uvula midline Neuro General: patient oriented x3, gait normal and moves all extremities Assessment & Plan Assessment & Plan (1) Ruptured tympanic membrane: Code(s): H72.90 - Unspecified perforation of tympanic membrane, unspecified ear Qualifiers: Laterality: left Qualified Code(s): H72.92 - Unspecified perforation of tympanic membrane, left ear Plan: 44-year-old male with persistent, treatment-refractory left otalgia despite appropriate courses of Ciprodex and Augmentin. Differential includes: Refractory acute otitis media vs Chronic suppurative otitis media vs Eustachian tube dysfunction vs TM perforation or scarring from childhood surgery. Given recurrent infections and surgical history, underlying structural issues are possible. Ordered Cefuroxime 500 mg BID x 10 days. Patient has Ruptured Left TM. Naproxen 500 mg BID for 7 Days for pain relief. ENT referral ? recurrent symptoms + prior ear surgery + failure of two therapies. Educate patient on warning signs: worsening pain, fever, hearing loss, vertigo, post-auricular swelling ? seek urgent care. Medications: New cefuroxime axetil 500 mg PO BID 20 tabs 0RF 10 days H7.92 - Unspecified perforation of tympanic membrane, left ear naproxen 500 mg PO BID 20 tabs 0RF PAIN 7 days H7. - Unspecified perforation of tympanic membrane, left ear Discontinued diclofenac potassium Discontinued Reason: No Longer Medically Relevant 50 mg PO BID 7 days 20 tabs 0RF M25.562 - Pain in left knee, M25.571 - Pain in right ankle and joints of right foot Coding Level of Care Code Est Pt Level 4 (96817) Diagnoses Perforation of left tympanic membrane H7. Laterality: left Time Spent (min) 20
[2025-01-06 08:07] VITALS: BP 136/98; PULSE 73; TEMP 36.9; O2SAT 98; BMI 36.8
--- OUTSIDE RECORDS SUMMARY | 2025-01-06 08:07 | XMS_ITS | Data Portability ---
Author Organization CAROLINE Holloway [facility] [employer] [facility], [address] Address [address] [place] [address] Care Team Providers Care Banquet Set Up Person Name Role Phone SKYLER KELLEY Primary Care Provider [phone] Assessment No assessment recorded. Plan of Treatment Reminders Order Date Submit Date Provider Last Modified By Organization Details Last Modified Time Details Appointments None recorded. Lab rapid strep group A, throat 2022 023 [place] [address], [address] [place] [address], [phone], 3 09:47:02 rapid flu (A+B) 2022 023 [place] [address] [facility], [address] [place] [address], [phone], 3 09:47:02 streptococc us group A, culture, throat 2022 023 [facility], [address] [place] [address], [id number], 3 08:07:41 Referral None recorded. Procedures None recorded. Surgeries None recorded. Imaging None recorded. Medication Orders amoxicillin 875 mg tablet 2022 023 [place] [address] [id number], [address] [place], [address], 3 09:48:00 Patient TargetsNo targets recorded. Patient Instructions Encounter Date Encounter Id Patient Instructions Last Modified By Organization Details Last Modified Time 02/23/2022 [id number] sore throat: car e instructions Not available [...] symptoms: 1. A fever of at least 101 F or 38.4 C 2. Throat pain that is severe or [...] Range : Negat kady Not Available [facility] ([facility]) [address] [facility], [place], [address], 02/26/2022 14:06:17 02/23/19 23 02/23/2022 rapid flu (A+B) Unknown Analyte Normal = Negati ve Not Available [address] [facility] [facility], [place], [address], 02/23/2022 09:08:33 02/23/19 23 02/23/2022 rapid flu (A+B) Unknown Analyte Normal = Negati ve Not Available [address] [place], [place] [address], [address], 02/23/2022 09:08:33 02/23/19 23 02/23/2022 rapid flu (A+B) Unknown Analyte negati ve Not Available [address] [place], [place] [address], [address], 02/23/2022 09:08:33 02/23/19 23 02/23/2022 rapid flu (A+B) Unknown Analyte negati ve Not Available [address] [place] [address] CH[place], [phone], 02/23/2022 09:08:33 02/23/19 23 02/23/2022 rapid strep group A, throa t Unknown Analyte Normal = Negati ve Not Available [address] [place] [address], CHANA Wilson, [address], 02/23/2022 09:05:57 02/23/19 23 02/23/2022 rapid strep group A, throa t Unknown Analyte negati ve Not Available [address] [place] [address], [place] Wilson, [phone], 02/23/2022 09:05:57 Result Notes None recorded. Problems Name Problem SNOMED Code Status Onset Date Resolution Date Notes Provider Name and Address Organization Details Recorded Time Hyperlipidemia [id number] Active 2022 [facility]OL[facility] 09:12:37 Problem [...] rate Body temperature Heart rate Oxygen saturation Systolic And Diastolic Provider Name and Address Organization Details Last Updated DateTime 3 170.18 cm 34.5 kg/m2 05306.3 2 g 18 /min 98.1 [degF] 66 /min 100 % 156/102 mm[Hg] Charity Longoria PA [facility] 3 09:12:31 Social History Question Answer Notes LastModified by [employer] Details LastModified Time Tobacco Smoking Status Never Smoker Charity saldivar PA - [facility] 02/23/2022 09:08:25 Have You Had Direct Contact, Or Contact During Intimacy, With Monkeypox Rash, Scabs, Or Body Fluids From A Person With Monkeypox? No Information not available 02/23/2022 Have You Recently Traveled Abroad? No Information not available 02/23/2022 Sex: Unknown Functional Status Question Answer Note LastModified by [employer] Details LastModified Time Do you use any illicit or recreational drugs? No Information not available 02/23/2022 Do you or have you ever used any other forms of tobacco or nicotine? No Information not available 02/23/2022 What is your level of alcohol consumption? Occasional Information not available 02/23/2022 Mental Status None recorded. Family History Relationship [...] 30 mcg/0.3 mL dose 06/09/2020 completed Charity [place] null, PA - [facility] 02/23/2022 09:07:15 Past Encounters Encounter ID Performer Location Encounter Start Date Encounter Closed Date Diagnosis/Indication Diagnosis SNOMED-CT Code Diagnosis ICD10 Code Diagnosis IMO Codes Diagnosis Note [id number] [address] [place] [address] 04/22/2021 09:04:16 04/22/2021 10:16:48 [id number] [address] [place] [address] 04/18/2018 17:38:29 04/18/2018 18:05:20 [id number] [address] [place] [address] 05/16/2017 08:27:46 05/16/2017 08:48:36 [id number] Jacqueline Santamaria MD [address] [place] [address] 02/23/2022 08:24:30 02/23/2022 10:04:03 Upper respiratory infection 86334348 J06.9 Acute pharyngitis 842080 003 J02.9 Health Concerns Section Related Observation LastModified by Organization Detai ls LastModified Time None Recorded Concern Status LastModified by Organization Details LastModified Time None Recorded Advance Directives Directive None Recorded Payers Insurance Date Sequence Insurance Name Policy Number Policy Kwok Covered Member ID Kwok Member ID Guarantor Name 02/23/2022 1 [facility] ([facility]) [id number] Krissy Bautista Khanh Shirley [id number] 1 Que Shirley Notes Date Note Type Note Provider Name and Address Organization Details Recorded Time 02/23/2022 text/html Sore throatRepor kelly by PatientSore ThroatFor associated symptoms, patient reportsyellow sputumandsinus pain/ congestionbut reportsno shortness of breath,no wheezing,no vomiting, andno nausea. For location, patient reportsthroat. For severity, patient reportsmoderate. For quality, patient reportshurts to swallow. For onset/timing, patient reports4 days. For context, patient reportsno sick contacts. Jacqueline Santamaria MD [facility] [place], [address], PA - [facility] 02/23/2022 09:48:50
== END 2025-01-06 08:38 | disposition home or self-care (01) ==
PROVIDERS: PCP Internal Medicine; Visit Provider Nurse Practitioner Family
DX: H72.92 Unspecified perforation of tympanic membrane, left ear (principal)

== ENCOUNTER → 2025-01-06 08:03 | Outpatient (BNVA) | payer OTHER, SELFPAY | PROVIDERS: PCP Internal Medicine; Visit Provider Nurse Practitioner Family | DX: H72.92 Unspecified perforation of tympanic membrane, left ear (principal) | CPT/HCPCS: 99212 ==

== ENCOUNTER 2025-01-07 07:59 | Emergency (ER) | payer OTHER, SELFPAY ==
--- NOTE | ~2025-01-07 | CT_ITS ---
CT TEMPORAL BONES WITHOUT CONTRAST HISTORY: Chronic otitis media, left mastoid tenderness to palpation. TECHNIQUE: Spiral CT scanning of the petrous temporal bones was performed without intravenous contrast. Multiplanar reformations were generated from the axial data set. COMPARISON: None available. FINDINGS: LEFT PETROUS TEMPORAL BONE: On the left, the external auditory canal is intact, widely patent, and normal in size. The tympanic membrane is perhaps minimally thickened but not retracted. The scutum is not eroded. Prussak's space is normal. The ossicles are normal in appearance without erosions. The middle ear canal is normally aerated. The mastoids and mastoid antrum are normally aerated. The otic capsule is normally mineralized. The middle ear structures are normally formed. The cochlea has an appropriate number of turns. The semicircular canals are normally covered by bone. There is no dehiscence. The tegmen tympani and tegmen mastoideum are intact. The jugular bulb is normal in position and covered by bone. The carotid canal is covered by bone. RIGHT PETROUS TEMPORAL BONE: On the right, the external auditory canal is intact, widely patent, and normal in size. The tympanic membrane is not retracted nor thickened. The scutum is not eroded. Prussak's space is normal. The ossicles are normal in appearance without erosions. The middle ear canal is normally aerated. The mastoids and mastoid antrum are normally aerated. The otic capsule is normally mineralized. The middle ear structures are normally formed. The oval and round window have a normal appearance. The cochlea has an appropriate number of turns. The semicircular canals are normally covered by bone. There is no dehiscence. The tegmen tympani and tegmen mastoideum are intact. The jugular bulb is normal in position and covered by bone. The carotid canal is covered by bone. PARANASAL SINUSES: Mild to moderate scattered mucosal thickening in the left greater than right maxillary and bilateral ethmoid sinuses. No air-fluid levels. The sphenoid sinuses are normally aerated as are the frontal sinuses. There appear to be chronic nasal bone fractures. TMJ's: Normal. IMAGED BRAIN: Limited evaluation on this technique. No mass effect or edema identified. Posterior fossa structures appear normal. OTHER: Mildly prominent adenoidal soft tissues are present, presumably reactive. CT/CT mastoid IMPRESSION: 1. Essentially normal examination of the bilateral petrous temporal bones. No evidence of otitis media or mastoiditis identified. 2. Mild maxillary and ethmoid paranasal sinus disease. Electronically signed by: Shawn West MD 01/07/2025 10:16 AM WALT RAMIREZ
[2025-01-07 08:09] VITALS: BP 176/131; PULSE 61; RESP 18; TEMP 36.9; O2SAT 96; BMI 37.3
--- NOTE | 2025-01-07 08:12 | ED_ITS ---
HPI - Ear Problem General Chief complaint: Ear Problems Stated complaint: General Medical Time Seen by Provider: 01/07/25 08:09 Source: patient and old records reviewed Mode of arrival: ambulatory Limitations: no limitations History of Present Illness ED Provider: JURGEN MILLER Narrative: 44-year-old male with recent left ear infection starting November he has been seen in the urgent care clinic on 12/05/2024, 12/06/2024, 01/06/2025 he has been on Ciprodex drops, Augmentin x7 days and then on most recent visit on January 06 he was started on naproxen and Ceftin and advised to follow up with ENT he is now here with complaint of persistent left ear pain x1 month that is sharp in painful. He also has some numbness in the face and pain in his teeth. He has no weakness of the face. States when he wakes up he does feel tingling. He feels like the glands on his left cheek are painful. He has no sore throat or difficulty swallowing MD Complaint: ear pain and other Location: left ear Duration: constant Severity: moderate Relieving factors: nothing Exacerbating factors: chewing and palpation Context: recent illness Discharge from ear: no Associated symptoms ear: decreased hearing, headache, external ear tenderness and other Treatment prior to arrival: eardrops and other (Oral antibiotics) Related Data Previous Rx's ?Medication ?Instructions ?Recorded cefuroxime axetil 500 mg tablet 500 mg PO BID 10 days #20 tabs 01/06/25 naproxen 500 mg tablet 500 mg PO BID PAIN 7 days #2 0 tabs 01/06/25 levofloxacin 750 mg tablet 750 mg PO DAILY #7 tabs prednisone 20 mg tablet 40 mg (2 x 20 mg) PO DAILY 5 days 01/07/25 #10 tabs Allergies Allergy/AdvReac Type Severity Reaction Status Date / Time No Known Allergies Allergy Verified 01/07/25 08:10 Review of Systems 2 Review of Systems: Constitutional : No Fever, No Chills, No Fatigue ENT/Mouth : No sore throat, No Rhinorrhea, positive ear pain Eyes: No Eye Pain, No Swelling, No Redness Cardiovascular : No Chest Pain, No SOB Respiratory : No Cough, No Sputum Gastrointestinal : No Nausea, No Vomiting Musculoskeletal : No joint pain, No Myalgias, No Joint Swelling Skin : No Skin Lesions, No rash Neuro : No Weakness, No Numbness, No Dizziness, positive Headache Psych : No Anxiety/Panic, No Depression Heme/Lymph: No Bruising, No Bleeding,pos Lymphadenopathy = All other systems reviewed and are negative [facility] Past Medical History Attestation statement: The following information was validated with the patient. Source: old records reviewed Medical History Ruptured tympanic membrane Otitis externa Left knee pain Right ankle pain Plantar fasciitis Pain of both heels High cholesterol Surgical History History of hernia surgery No pertinent past surgical history Family History Family History Family/Other Medical history unknown Father Hypertension Diabetes Mother No problems noted. Social History Social History Household Members Other:: , 3 children, works at [employer] Housing: House Alcohol intake: current Patient Tobacco Use Status: Never used Tobacco e-Cigarette/Vaping Use: Never Used Advance Directives: No Advance Directives Information Provided: Yes service: No Current occupational status: employed Cognitive needs: No Hearing needs: No Vision needs: Yes Physical Exam 2 Vital Signs: Vital Signs: Last Vital Signs Temp 98.0 F 01/07/25 10:49 Pulse 58 01/07/25 10:49 Resp 18 01/07/25 10:49 BP 158/112 H 01/07/25 10:49 Pulse Ox 97 01/07/25 10:49 O2 Del Method Room Air 01/07/25 10:49 BMI result Body Mass Index 37.3 Appearance: Alert. Oriented X3. No acute distress. Eyes: Pupils equal, round and reactive to light. ENT: Pharynx normal no erythema or redness. He does have soft anterior cervical lymphadenopathy left preauricular, left to be submandibular but mild there is no ropey cord or extension to the neck to suggest Prashanth's, left ear canal is swollen and erythematous but open. Left TM I see no perforation but there is dullness of the left ear with effusion and erythema. There is loss of light reflex. Neck: Normal inspection. Neck supple. Mild left anterior cervical lymphadenopathy but no significant swelling or concern for Prashanth's CVS: Normal heart rate and rhythm. Pulses normal. Respiratory: No respiratory distress. Breath sounds normal. Abdomen: Soft and nontender. Skin: Skin warm and dry. Normal skin color. Normal skin turgor. Extremities: No lower extremity edema. No calf ttp Neuro: Oriented X 3. No motor deficit. No sensory deficit. CN2-12 intact Medical Decision Making Medical Decision Making [facility] Narrative: 44-year-old male with recent left ear infection starting November and arthritis now here with complaints that persists now with worsening pain to the left side of the face. He is neuro intact without fever I doubt there is a [employer] infection. Has no neck findings on exam other than mild lymphadenopathy I do not suspect that there is any Prashanth's. He will get basic labs, CT scan of the mastoid. I think given the recurrent otitis media and findings I did discuss he needs to call ENT but also I would broaden his coverage from cephalosporin to Levaquin. Differential Diagnosis Differential Diagnoses: The differential diagnosis associated with the presentation includes Mastoiditis, lymphadenopathy, concern for possible Hayes's palsy, recurrent ear infection without ENT follow-up and lack of response to oral antibiotics Admission/Observation Consideration of admission/observation: Escalation of care including admission/observation considered Labs are reassuring, he does have mild pansinusitis disease Discussed with him to stop the Naprosyn, as well as cefuroxime Given his recurrent disease we will broaden him with Levaquin did discuss risks of tendinopathy His blood pressure is elevated but he is asymptomatic after treatment he is going to follow up with his doctor and recheck his blood pressure in 1 week Lab Data [facility] Lab Attestation statement: I reviewed the patient's lab results. 01/07/25 08:29 01/07/25 08:29 Labs: Lab Results 01/07/25 Range/Units 08:29 WBC 6.4 (4.8-10.8) X10*3/uL RBC 4.94 (4.60-5.80) X10*6/uL Hgb 15.9 (14.0-18.0) g/dl Hct 45.7 (42.0-52.0) % MCV 92.5 (80.0-98.0) fL MCH 32.2 (27.0-33.0) pg MCHC 34.8 (31.0-36.0) g/dl RDW 12.1 (11.0-16.0) % Plt Count 241 (160-400) X10*3/uL MPV 9.4 (9.4-12.4) fL Immature Gran % (Auto) 0.3 (0.0-0.4) % Neut % (Auto) 51.1 (45-73) % Lymph % (Auto) 33.6 (20-40) % Wythe % (Auto) 8.6 (2-11) % Eos % (Auto) 5.5 H (0-4) % Baso % (Auto) 0.9 (0-2) % Lymph # (Auto) 2.2 (1.2-4.9) X10*3/uL Wythe # (Auto) 0.6 (0.1-1.2) X10*3/uL Eos # (Auto) 0.4 (0.0-0.4) X10*3/uL Baso # (Auto) 0.1 (0.0-0.2) X10*3/uL Abs Immat Gran (auto) 0.02 (0.00-0.03) X10*3/uL Absolute Neuts (auto) 3.3 (2.0-8.3) x10*3/uL Absolute Nucleated RBC 0.000 (0.0-0.012) X10*3/uL Nucleated RBC % (auto) 0.0 (0.0-0.2) /100WBC Sodium 139 (135-145) mmol/L Potassium 4.4 (3.3-5.1) mmol/L Chloride 107 (96-108) mmol/L Carbon Dioxide 24 (22-29) mmol/L Anion Gap 12 (12-20) BUN 14 (9-16) mg/dL Creatinine 0.75 (0.5-1.4) mg/dL Estim Creat Clear Calc 148.8 Estimated GFR > 60 Random Glucose 123 H (60-115) mg/dL Calcium 9.3 (8.4-10.2) mg/dL Independent Interpretation I performed an independent interpretation of an: CT Scan (Vivas sinusitis but no mastoiditis) Radiology Impression Discussion of test interpretation with radiology: I have reviewed the radiologist's reading. External Record Review External record reviewed: Outpatient record Prescription Management I considered prescription management with: Antibiotic and Other Discharge Plan Discharge Clinical Impression: Otitis media of left ear, Acute pansinusitis, Elevated blood pressure reading Patient Disposition: Home, Self-Care Instructions: How to Take a Blood Pressure Reading (ED), Ear Infection (ED), Rhinosinusitis (DC) Additional Instructions: At this time your labs are reassuring Your CT scan did show sinus disease but no deeper ear infection Stop the cefuroxime and Naprosyn I am going to place you on Levaquin, remember it can cause tendon issues so be very careful with exercise while on the medication and 5 days after Take all medications with food You need to follow up with ENT please call and make an appointment Return for any worsening symptoms or concerns [facility] [address] [facility] [phone] Please call to schedule an appointment [place] [phone] Repeat blood pressure with the primary care in 1 week Prescriptions: New prednisone 20 mg tablet 40 mg PO DAILY 5 Days Qty: 10 0RF levofloxacin 750 mg tablet 750 mg PO DAILY Qty: 7 0RF No Action cefuroxime axetil 500 mg tablet 500 mg PO BID 10 Days Qty: 20 0RF naproxen 500 mg tablet 500 mg PO BID 7 Days Qty: 20 0RF Stand Alone Forms: Work/School Release Interventions: ED Discharge Assessment Last Done: 01/07/25 10:49 Discharge Date/Time: 01/07/25 10:50 Print Language: Czech
--- OUTSIDE RECORDS SUMMARY | 2025-01-07 08:29 | XMS_ITS | Data Portability ---
Author Organization [facility], [address] Address [address] [place] [address] Care Team Providers Care Cushion Cover Inspector Name Role Phone SKYLER KELLEY Primary Care Provider Assessment No assessment recorded. Plan of Treatment Reminders Order Date Submit Date Provider Last Modified By Organization Details Last Modified Time Details Appointments None recorded. Lab rapid strep group A, throat 2022 023 [place] [address], [address] [place] [address], [phone], 3 09:47:02 rapid flu (A+B) 2022 023 [place] [address] [facility], [address] [place] [address], [phone], 3 09:47:02 streptococc us group A, culture, throat 2022 023 [facility], [address] [place] [address], [id number], 3 08:07:41 Referral None recorded. Procedures None recorded. Surgeries None recorded. Imaging None recorded. Medication Orders amoxicillin 875 mg tablet 2022 023 [place] [address] [id number], [address] [place], [address], 3 09:48:00 Patient TargetsNo targets recorded. Patient Instructions Encounter Date Encounter Id Patient Instructions Last Modified By Organization Details Last Modified Time 02/23/2022 [id number] sore throat: car e instructions Not available [...] Range : Negat kady Not Available [facility] ([facility]) [address] [facility], [place], [address], 02/26/2022 14:06:17 02/23/19 23 02/23/2022 rapid flu (A+B) Unknown Analyte Normal = Negati ve Not Available [facility], [place], [address], 02/23/2022 09:08:33 02/23/19 23 02/23/2022 rapid flu (A+B) Unknown Analyte Normal = Negati ve Not Available [address] [place], [place] [address], [address], 02/23/2022 09:08:33 02/23/19 23 02/23/2022 rapid flu (A+B) Unknown Analyte negati ve Not Available [address] [place], [place] [address], [address], 02/23/2022 09:08:33 02/23/19 23 02/23/2022 rapid flu (A+B) Unknown Analyte negati ve Not Available [address] [place] [address] CHANA Wilson, [phone], 02/23/2022 09:08:33 02/23/19 23 02/23/2022 rapid strep group A, throa t Unknown Analyte Normal = Negati ve Not Available [address] [place] [address], [place] Wilson, [address], 02/23/2022 09:05:57 02/23/19 23 02/23/2022 rapid strep group A, throa t Unknown Analyte negati ve Not Available [address] [place] [address], [place] Wilson, [phone], 02/23/2022 09:05:57 Result Notes None recorded. Problems Name Problem SNOMED Code Status Onset Date Resolution Date Notes Provider Name and Address Organization Details Recorded Time Hyperlipidemia 47608996 Active 2022 [facility] 09:12:37 Problem [...] Updated DateTime 3 170.18 cm 34.5 kg/m2 50344.3 2 g 18 /min 98.1 [degF] 66 /min 100 % 156/102 mm[Hg] Charity Longoria PA [facility] 3 09:12:31 Social History Question Answer Notes LastModified by Gemidis Details LastModified Time Tobacco Smoking Status Never Smoker Charity saldivar PA - [facility] 02/23/2022 09:08:25 Have You Had Direct Contact, Or Contact During Intimacy, With Monkeypox Rash, Scabs, Or Body Fluids From A Person With Monkeypox? No Information not available 02/23/2022 Have You Recently Traveled Abroad? No Information not available 02/23/2022 Sex: Unknown Functional Status Question Answer Note LastModified by Gemidis Details LastModified Time Do you use any [...] 30 mcg/0.3 mL dose 06/09/2020 completed Charity [place] null, PA - [facility] 02/23/2022 09:07:15 Past Encounters Encounter ID Performer Location Encounter Start Date Encounter Closed Date Diagnosis/Indication Diagnosis SNOMED-CT Code Diagnosis ICD10 Code Diagnosis IMO Codes Diagnosis Note [id number] [address] [address] [place] [address] 04/22/2021 09:04:16 04/22/2021 10:16:48 [id number] [address] [place] [address] 04/18/2018 17:38:29 04/18/2018 18:05:20 [id number] [address] [place] [address] 05/16/2017 08:27:46 05/16/2017 08:48:36 [id number] Jacqueline Santamaria [place] [address] [address] [place] [address] 02/23/2022 08:24:30 02/23/2022 10:04:03 Upper respiratory infection 18599031 J06.9 Acute pharyngitis 556466 003 J02.9 Health Concerns Section Related Observation LastModified by Organization Detai ls LastModified Time None Recorded Concern Status LastModified by Organization Details LastModified Time None Recorded Advance Directives Directive None Recorded Payers Insurance Date Sequence Insurance Name Policy Number Policy Kwok Covered Member ID Kwok Member ID Guarantor Name 02/23/2022 1 [facility] (O) [id number] Krissy Bautista Khanh Shirley [id number] 1 Que Shirley Notes Date Note Type [...] patient reportsno sick contacts. Jacqueline Santamaria MD [facility] [place], [address], [place] - [facility] 02/23/2022 09:48:50
[2025-01-07 08:33] LABS: Hematocrit 45.7 % (42.0-52.0); Hemoglobin 15.9 g/dl (14.0-18.0); Imm Gran Abs Auto 0.02 X10*3/uL (0.00-0.03); Imm Gran Pct Auto 0.3 % (0.0-0.4); Lymphocytes Absolute Auto 2.2 X10*3/uL (1.2-4.9); MANUAL DIFF FLAG NO; Mean Corpuscular HGB Conc 34.8 g/dl (31.0-36.0); Mean Corpuscular Hemoglobin 32.2 pg (27.0-33.0); Mean Corpuscular Volume 92.5 fL (80.0-98.0); NRBC Abs Auto 0.000 X10*3/uL (0.0-0.012); NRBC Pct Auto 0.0 /100WBC (0.0-0.2); Platelet Count 241 X10*3/uL (160-400); Red Blood Count 4.94 X10*6/uL (4.60-5.80); White Blood Count 6.4 X10*3/uL (4.8-10.8)
[2025-01-07 08:47] LABS: Anion Gap 12 (12-20); Blood Urea Nitrogen 14 mg/dL (9-16); Calcium 9.3 mg/dL (8.4-10.2); Carbon Dioxide 24 mmol/L (22-29); Chloride 107 mmol/L (96-108); Creatinine Clr Calc Pharmacy 148.8; Estimated Glomerular Filt Rate > 60; Potassium 4.4 mmol/L (3.3-5.1); Sodium 139 mmol/L (135-145)
[2025-01-07 09:29] VITALS: BP 158/112; PULSE 58; RESP 18; TEMP 36.7; O2SAT 97
[2025-01-07 10:49] VITALS: BP 158/112; PULSE 58; RESP 18; TEMP 36.7; O2SAT 97
== END 2025-01-07 10:50 | disposition home or self-care (01) ==
PROVIDERS: Emergency Provider Emergency Medicine; PCP Internal Medicine
DX: H66.92 Otitis media, unspecified, left ear (principal); J32.4 Chronic pansinusitis; R03.0 Elevated blood-pressure reading, without diagnosis of hypertension
CPT/HCPCS: 36415; 70481; 80048; 85025; 99282; 99284

== ENCOUNTER → 2025-01-07 08:17 | Outpatient (BNV) | payer OTHER, SELFPAY | PROVIDERS: Emergency Provider Emergency Medicine; PCP Internal Medicine; Visit Provider Radiology Diagnostic Radiology | DX: J32.0 Chronic maxillary sinusitis (principal); J32.2 Chronic ethmoidal sinusitis | CPT/HCPCS: 70481 ==